=== PATIENT | female | born 1935 | race Caucasian/White ===

== ENCOUNTER 2017-10-31 16:32 | Inpatient (IN) | payer MEDICAID ==
[~2017-10-31] VITALS: Ht 160 cm; Wt 83.4 kg
[2017-10-31 17:29] LABS: BASOPHILS % (AUTO) 0.6 % (0.0-2.0); EOSINOPHILS % (AUTO) 0.3 % (1.0-6.0); HEMATOCRIT 37.5 % (36-46); HEMOGLOBIN 12.3 g/dL (12.0-16.0); LYMPHOCYTES % (AUTO) 12.3 % (22.0-44.0); MEAN CORPUSCULAR HEMOGLOBIN 30.1 pg (26.0-34.0); MEAN CORPUSCULAR HGB CONC 32.8 G/dL (31.0-37.0); MEAN CORPUSCULAR VOLUME 92 fL (80-100); MONOCYTES # (AUTO) 1.3 K/uL (0.1-1.0); MONOCYTES % (AUTO) 15.4 % (2.0-9.0); NEUTROPHILS # (AUTO) 5.9 K/uL (1.8-7.7); NEUTROPHILS % (AUTO) 71.4 % (40.0-70.0); PLATELET COUNT (AUTO) 281 K/uL (150-450); RED BLOOD CELL COUNT(AUTO) 4.08 MIL/uL (4.00-5.20); RED CELL DISTRIBUTION WIDTH 15.5 % (11.5-14.5)
[2017-10-31] MEDS ORDERED: BACITRACIN 0.9 GM PACKET OINTMENT TP ONE (17:30)
[2017-10-31 17:35] LABS: ANION GAP 8 mmol/L (8-16); CALCIUM, TOTAL 10.3 mg/dL (8.8-10.5); CARBON DIOXIDE 27 mmol/L (22-29); CHLORIDE 105 mmol/L (98-107); CREATININE 0.82 mg/dL (0.60-1.30); GLOMERULAR FILTR. RATE CALC > 60 mL/min (>60); GLUCOSE,RANDOM 153 mg/dL (70-110); POTASSIUM 4.4 mmol/L (3.5-5.1); SODIUM SERUM 140 mmol/L (136-145); UREA NITROGEN, BLOOD 19 mg/dL (7-18)
[2017-10-31 17:41] LABS: ALANINE AMINOTRANSFERASE 60 U/L (12-78); ALKALINE PHOSPHATASE 138 U/L (46-116); ASPARTATE AMINOTRANSFERASE 32 U/L (15-37); BILIRUBIN,TOTAL 0.7 mg/dL (0.1-1.0); TOTAL PROTEIN, SERUM 6.4 g/dL (6.4-8.2)
[2017-10-31 17:57] LABS: LIPASE 91 U/L (73-393)
[2017-10-31 18:15] LABS: B-TYPE NATRIURETIC PEPTIDE 2110 pg/mL (0-100)
[2017-10-31 18:23] LABS: APPEARANCE,URINE CLEAR (CLEAR); BILIRUBIN,URINE NEGATIVE (NEGATIVE); GLUCOSE, URINE (UA) NEGATIVE (NEGATIVE); KETONES,URINE NEGATIVE (NEGATIVE); LEUKOCYTE ESTERASE ,URINE TRACE (NEGATIVE); NITRATE,URINE NEGATIVE (NEGATIVE); OCCULT BLOOD,URINE NEGATIVE (NEGATIVE); PH,URINE 6.5 (5.0-8.0); PROTEIN,URINE TRACE (NEGATIVE)
[2017-10-31] MEDS ORDERED: ACETAMINOPHEN 325 MG TABLET PO PRN ×2 (18:30→18:45)
[2017-10-31] MEDS ORDERED: 0.9% SODIUM CHLORIDE 10 ML SYRINGE IVP PRN (18:30)
[2017-10-31] MEDS ORDERED: CEFTAROLINE 600 MG/D5W 250 ML IV ONE (18:30)
[2017-10-31] MEDS ORDERED: ONDANSETRON HCL 4 MG/2 ML VIAL IVP PRN ×2 (18:30→18:45)
[2017-10-31 18:32] LABS: BACTERIA,URINE Few /HPF (None Seen); RBC,URINE 0-2 /HPF (0-2); SQUAMOUS EPITHELIAL CELL,UR Few /LPF (None Seen)
[2017-10-31 18:35] LABS: AMPHET/METH SCREEN,URINE NEGATIVE (NEGATIVE); BARBITURATE SCREEN, URINE NEGATIVE (NEGATIVE); BENZODIAZEPINES SCREEN,URINE NEGATIVE (NEGATIVE); CANNABINOID SCREEN,URINE NEGATIVE (NEGATIVE); COCAINE SCREEN,URINE NEGATIVE (NEGATIVE); METHADONE SCREEN, URINE NEGATIVE (NEGATIVE); OPIATE SCREEN,URINE NEGATIVE (NEGATIVE)
[2017-10-31 18:36] LABS: PHENCYCLIDINE SCREEN,URINE NEGATIVE (NEGATIVE)
[2017-10-31] MEDS ORDERED: MORPHINE SULFATE 2 MG/ML SYRINGE IVP PRN (18:45)
[2017-10-31] MEDS ORDERED: ASPIRIN 81 MG EC TABLET PO ONE (19:00)
[2017-10-31 19:25] LABS: FREE T4 (FREE THYROXINE) 1.14 ng/dL (0.76-1.46); THYROID STIMULATING HORMONE 3.01 uIU/mL (0.36-3.74)
[2017-10-31 20:40] VITALS: BP 140/79
[2017-10-31] MEDS: CARVEDILOL 3.125 MG TABLET PO SCH (21:51)
[2017-10-31] MEDS: DOCUSATE SODIUM 100 MG CAPSULE PO SCH (21:51)
[2017-10-31] MEDS: FUROSEMIDE 40 MG/4 ML VIAL IVP SCH (21:51)
[2017-10-31] MEDS ORDERED: INFLUENZA VIRUS VACCINE QVS 2017-18 (3YR+)/PF 60 MCG/0.5 ML SYRINGE IM ONE (22:45)
[2017-10-31 23:12] VITALS: BP 146/74
[2017-11-01 04:51] VITALS: BP 124/71
[2017-11-01] MEDS ORDERED: SODIUM CHLORIDE 0.9% 500 ML IV ONE (05:07)
[2017-11-01] MEDS ORDERED: VANCOMYCIN HCL 1 GM/D5% WATER 200 ML IV SCH (05:45)
[2017-11-01] MEDS ORDERED: CEFTAROLINE 600 MG/D5W 250 ML IV SCH (06:00)
[2017-11-01] MEDS ORDERED: VANCOMYCIN HCL 1 GM/D5% WATER 200 ML IV ONE ×2 (06:30→11:00)
[2017-11-01 06:55] LABS: INR 1.1 (0.9-1.1); PROTHROMBIN TIME 11.2 SEC (9.4-11.6)
[2017-11-01 07:07] LABS: HEMOGLOBIN A1C 6.4 % (4.5-6.2)
[2017-11-01 07:14] LABS: ANION GAP 6 mmol/L (8-16); C-REACTIVE PROTEIN QUANT 1.72 mg/dL (0.00-0.30); CALCIUM, TOTAL 9.5 mg/dL (8.8-10.5); CARBON DIOXIDE 29 mmol/L (22-29); CHLORIDE 103 mmol/L (98-107); CHOL/HDL RATIO 2.5 (3.9-5.7); CHOLESTEROL 141 mg/dL (131-200); CREATINE KINASE, TOTAL 37 U/L (26-192); CREATININE 0.88 mg/dL (0.60-1.30); GLOMERULAR FILTR. RATE CALC > 60 mL/min (>60); GLUCOSE,RANDOM 143 mg/dL (70-110); HDL CHOLESTEROL 56 mg/dL (40-60); LDL CHOL (CALC.) 71 mg/dL (0-130); PHOSPHORUS 3.4 mg/dL (2.5-4.9); POTASSIUM 3.6 mmol/L (3.5-5.1); SODIUM SERUM 138 mmol/L (136-145); TRIGLYCERIDES 71 mg/dL (15-150); UREA NITROGEN, BLOOD 16 mg/dL (7-18)
[2017-11-01 07:39] VITALS: BP 119/61
[2017-11-01] MEDS ORDERED: GADOBUTROL 1 MMOL/ML 10 ML VIAL IVP ONE (08:36)
[2017-11-01] MEDS: FUROSEMIDE 40 MG/4 ML VIAL IVP SCH ×2 (08:56→20:09)
[2017-11-01] MEDS: DOCUSATE SODIUM 100 MG CAPSULE PO SCH ×2 (08:56→20:09)
[2017-11-01] MEDS: CARVEDILOL 3.125 MG TABLET PO SCH ×2 (08:57→20:09)
[2017-11-01] MEDS: ENOXAPARIN SODIUM 40 MG/0.4 ML PF SYRINGE SQ SCH (08:57)
[2017-11-01] MEDS: PANTOPRAZOLE SODIUM 40 MG DR TABLET PO SCH (08:57)
[2017-11-01] MEDS: LISINOPRIL 5 MG TABLET PO SCH (08:57)
[2017-11-01 12:22] VITALS: BP 139/66
[2017-11-01] MEDS: POTASSIUM CHLORIDE 10 MEQ ER TABLET PO SCH (14:20)
[2017-11-01] MEDS: PIPERACILLIN/TAZO 3.375 GM/D5W 50 ML IV SCH ×2 (14:20→20:09)
[2017-11-01 16:25] VITALS: BP 121/59
[2017-11-01 20:02] VITALS: BP 143/71
[2017-11-01] MEDS: VANCOMYCIN HCL 1 GM/D5% WATER 200 ML IV SCH (20:09)
[2017-11-02] VITALS (21 sets, daily range): BP systolic 100–158; BP diastolic 46–79
[2017-11-02] MEDS: PIPERACILLIN/TAZO 3.375 GM/D5W 50 ML IV SCH ×3 (06:11→20:44)
[2017-11-02 07:05] LABS: CALCIUM, TOTAL 9.3 mg/dL (8.8-10.5); CREATININE 1.14 mg/dL (0.60-1.30); POTASSIUM 3.4 mmol/L (3.5-5.1)
[2017-11-02] MEDS: VANCOMYCIN HCL 1 GM/D5% WATER 200 ML IV SCH ×2 (08:57→20:16)
[2017-11-02] MEDS: FUROSEMIDE 40 MG/4 ML VIAL IVP SCH ×2 (08:57→20:43)
[2017-11-02] MEDS: PANTOPRAZOLE SODIUM 40 MG DR TABLET PO SCH (08:58)
[2017-11-02] MEDS: DOCUSATE SODIUM 100 MG CAPSULE PO SCH ×2 (08:58→20:43)
[2017-11-02] MEDS: LISINOPRIL 5 MG TABLET PO SCH (08:59)
[2017-11-02] MEDS: CARVEDILOL 3.125 MG TABLET PO SCH (08:59)
[2017-11-02] MEDS: POTASSIUM CHLORIDE 10 MEQ ER TABLET PO SCH (09:00)
[2017-11-02] MEDS ORDERED: DULoxetine HCL 20 MG CAPSULE PO SCH (09:00)
[2017-11-02] MEDS: ENOXAPARIN SODIUM 40 MG/0.4 ML PF SYRINGE SQ SCH (09:00)
[2017-11-02] MEDS: HYDROCODONE/ACETAMINOPHEN 5-325 MG TABLET PO PRN (09:11)
[2017-11-02] MEDS ORDERED: POTASSIUM CHL 10 MEQ/WATER 50 ML IV PRN (12:00)
[2017-11-02] MEDS ORDERED: POTASSIUM CHLORIDE 20 MEQ ER TABLET PO PRN (12:00)
[2017-11-02 15:22] LABS: EOSINOPHILS % (AUTO) 0.6 % (1.0-6.0); LYMPHOCYTES # (AUTO) 0.6 K/uL (1.0-4.8); NEUTROPHILS # (AUTO) 6.4 K/uL (1.8-7.7); RED CELL DISTRIBUTION WIDTH 15.6 % (11.5-14.5)
[2017-11-02 15:54] LABS: BASOPHILS % (AUTO) 0.4 % (0.0-2.0); HEMATOCRIT 34.2 % (36-46); LYMPHOCYTES % (AUTO) 7.2 % (22.0-44.0); MEAN CORPUSCULAR HEMOGLOBIN 29.8 pg (26.0-34.0); MEAN CORPUSCULAR HGB CONC 32.2 G/dL (31.0-37.0); MEAN CORPUSCULAR VOLUME 92 fL (80-100); MONOCYTES # (AUTO) 1.1 K/uL (0.1-1.0); MONOCYTES % (AUTO) 13.1 % (2.0-9.0); NEUTROPHILS % (AUTO) 78.7 % (40.0-70.0); PLATELET COUNT (AUTO) 238 K/uL (150-450)
[2017-11-02] MEDS: DOPamine HCL 400 MG/D5%-WATER 250 ML IV SCH (20:17)
[2017-11-03] VITALS (17 sets, daily range): BP systolic 131–150; BP diastolic 52–74
[2017-11-03] MEDS: PIPERACILLIN/TAZO 3.375 GM/D5W 50 ML IV SCH ×3 (05:17→21:56)
[2017-11-03 07:23] LABS: BASOPHILS % (AUTO) 0.9 % (0.0-2.0); EOSINOPHILS % (AUTO) 0.2 % (1.0-6.0); HEMATOCRIT 37.7 % (36-46); HEMOGLOBIN 12.5 g/dL (12.0-16.0); LYMPHOCYTES % (AUTO) 10.1 % (22.0-44.0); MEAN CORPUSCULAR HEMOGLOBIN 30.3 pg (26.0-34.0); MEAN CORPUSCULAR VOLUME 92 fL (80-100); MONOCYTES # (AUTO) 1.6 K/uL (0.1-1.0); MONOCYTES % (AUTO) 16.1 % (2.0-9.0); NEUTROPHILS # (AUTO) 7.2 K/uL (1.8-7.7); NEUTROPHILS % (AUTO) 72.7 % (40.0-70.0); PLATELET COUNT (AUTO) 262 K/uL (150-450); RED BLOOD CELL COUNT(AUTO) 4.11 MIL/uL (4.00-5.20); RED CELL DISTRIBUTION WIDTH 15.5 % (11.5-14.5)
[2017-11-03 07:49] LABS: ALBUMIN 2.7 g/dL (3.4-5.0); BILIRUBIN,TOTAL 0.6 mg/dL (0.1-1.0); CALCIUM, TOTAL 9.9 mg/dL (8.8-10.5); CREATININE 1.21 mg/dL (0.60-1.30); POTASSIUM 4.2 mmol/L (3.5-5.1); TOTAL PROTEIN, SERUM 6.3 g/dL (6.4-8.2); VANCOMYCIN,RANDOM 34.7 mcg/mL (25.0-50.0)
[2017-11-03] MEDS ORDERED: HEPARIN SODIUM,PORCINE 5,000 UNITS/ML VIAL IVP ONE (08:45)
[2017-11-03] MEDS ORDERED: HEPARIN SODIUM,PORCINE 5,000 UNITS/ML VIAL IVP PRN ×2 (08:45)
[2017-11-03 09:10] LABS: BASOPHILS % (AUTO) 0.6 % (0.0-2.0); EOSINOPHILS % (AUTO) 0.3 % (1.0-6.0); HEMATOCRIT 37.8 % (36-46); HEMOGLOBIN 12.5 g/dL (12.0-16.0); LYMPHOCYTES % (AUTO) 9.7 % (22.0-44.0); MEAN CORPUSCULAR HEMOGLOBIN 30.4 pg (26.0-34.0); MEAN CORPUSCULAR VOLUME 92 fL (80-100); MONOCYTES # (AUTO) 1.6 K/uL (0.1-1.0); MONOCYTES % (AUTO) 15.8 % (2.0-9.0); NEUTROPHILS # (AUTO) 7.4 K/uL (1.8-7.7); NEUTROPHILS % (AUTO) 73.6 % (40.0-70.0); PLATELET COUNT (AUTO) 266 K/uL (150-450); RED BLOOD CELL COUNT(AUTO) 4.09 MIL/uL (4.00-5.20); RED CELL DISTRIBUTION WIDTH 15.6 % (11.5-14.5)
[2017-11-03 09:19] LABS: INR 1.1 (0.9-1.1); PROTHROMBIN TIME 11.1 SEC (9.4-11.6)
[2017-11-03] MEDS: HEPARIN SODIUM 25000 UNITS/D5W 250 ML IV PRN (09:36)
[2017-11-03] MEDS: POTASSIUM CHLORIDE 10 MEQ ER TABLET PO SCH (09:38)
[2017-11-03] MEDS: ASPIRIN 81 MG EC TABLET PO SCH (09:38)
[2017-11-03] MEDS: PANTOPRAZOLE SODIUM 40 MG DR TABLET PO SCH (09:38)
[2017-11-03] MEDS: PRAVASTATIN SODIUM 20 MG TABLET PO SCH (09:38)
[2017-11-03] MEDS: DOCUSATE SODIUM 100 MG CAPSULE PO SCH ×2 (09:38→21:56)
[2017-11-03] MEDS: FUROSEMIDE 40 MG/4 ML VIAL IVP SCH ×2 (09:39→21:56)
[2017-11-03 18:28] LABS: GLUCOMETER DEV NAME(LOC) 5S 2N; GLUCOSE,POINT OF CARE 124 MG/DL (70-110)
[2017-11-03] MEDS: DOPamine HCL 400 MG/D5%-WATER 250 ML IV SCH (18:57)
[2017-11-03] MEDS ORDERED: SODIUM CHLORIDE 0.9% 250 ML IV ONE (21:51)
[2017-11-04] VITALS (7 sets, daily range): BP systolic 115–142; BP diastolic 64–99
[2017-11-04] MEDS ORDERED: DOPamine HCL 400 MG/D5%-WATER 250 ML IV PRN (03:05)
[2017-11-04] MEDS: PIPERACILLIN/TAZO 3.375 GM/D5W 50 ML IV SCH ×3 (05:36→20:51)
[2017-11-04 06:33] LABS: BASOPHILS % (AUTO) 0.8 % (0.0-2.0); EOSINOPHILS % (AUTO) 0.4 % (1.0-6.0); HEMOGLOBIN 11.1 g/dL (12.0-16.0); LYMPHOCYTES # (AUTO) 0.9 K/uL (1.0-4.8); LYMPHOCYTES % (AUTO) 14.3 % (22.0-44.0); MEAN CORPUSCULAR HEMOGLOBIN 30.3 pg (26.0-34.0); MEAN CORPUSCULAR HGB CONC 32.7 G/dL (31.0-37.0); MEAN CORPUSCULAR VOLUME 93 fL (80-100); MONOCYTES % (AUTO) 15.1 % (2.0-9.0); NEUTROPHILS # (AUTO) 4.4 K/uL (1.8-7.7); NEUTROPHILS % (AUTO) 69.4 % (40.0-70.0); PLATELET COUNT (AUTO) 234 K/uL (150-450); RED BLOOD CELL COUNT(AUTO) 3.67 MIL/uL (4.00-5.20); RED CELL DISTRIBUTION WIDTH 15.8 % (11.5-14.5)
[2017-11-04 06:52] LABS: ALBUMIN 2.4 g/dL (3.4-5.0); BILIRUBIN,TOTAL 0.4 mg/dL (0.1-1.0); CALCIUM, TOTAL 9.5 mg/dL (8.8-10.5); CREATININE 1.16 mg/dL (0.60-1.30); POTASSIUM 3.8 mmol/L (3.5-5.1); TOTAL PROTEIN, SERUM 5.9 g/dL (6.4-8.2)
[2017-11-04] MEDS: PRAVASTATIN SODIUM 20 MG TABLET PO SCH (08:52)
[2017-11-04] MEDS: ASPIRIN 81 MG EC TABLET PO SCH (08:52)
[2017-11-04] MEDS: VANCOMYCIN HCL 1.25 GM in DEXTROSE 5%-WATER 250 ML IV SCH (08:52)
[2017-11-04] MEDS: DOCUSATE SODIUM 100 MG CAPSULE PO SCH ×2 (08:53→20:44)
[2017-11-04] MEDS: PANTOPRAZOLE SODIUM 40 MG DR TABLET PO SCH (08:53)
[2017-11-04] MEDS: FUROSEMIDE 40 MG/4 ML VIAL IVP SCH ×2 (08:53→20:44)
[2017-11-04] MEDS: POTASSIUM CHLORIDE 10 MEQ ER TABLET PO SCH (08:53)
[2017-11-04] MEDS: HEPARIN SODIUM 25000 UNITS/D5W 250 ML IV PRN (09:06)
[2017-11-04] MEDS: APIXABAN 5 MG TABLET PO SCH ×2 (16:08→20:44)
[2017-11-04] MEDS ORDERED: SODIUM CHLORIDE 0.9% 50 ML ONE (20:41)
[2017-11-05 00:01] VITALS: BP 104/78
[2017-11-05 04:44] VITALS: BP 144/64
[2017-11-05] MEDS: PIPERACILLIN/TAZO 3.375 GM/D5W 50 ML IV SCH ×3 (04:47→21:14)
[2017-11-05 06:38] LABS: BASOPHILS % (AUTO) 0.6 % (0.0-2.0); EOSINOPHILS % (AUTO) 0.7 % (1.0-6.0); HEMATOCRIT 34.4 % (36-46); HEMOGLOBIN 11.4 g/dL (12.0-16.0); LYMPHOCYTES % (AUTO) 15.3 % (22.0-44.0); MEAN CORPUSCULAR HEMOGLOBIN 30.5 pg (26.0-34.0); MEAN CORPUSCULAR HGB CONC 33.1 G/dL (31.0-37.0); MEAN CORPUSCULAR VOLUME 92 fL (80-100); MONOCYTES % (AUTO) 16.6 % (2.0-9.0); NEUTROPHILS # (AUTO) 4.2 K/uL (1.8-7.7); NEUTROPHILS % (AUTO) 66.8 % (40.0-70.0); PLATELET COUNT (AUTO) 228 K/uL (150-450); RED BLOOD CELL COUNT(AUTO) 3.73 MIL/uL (4.00-5.20); RED CELL DISTRIBUTION WIDTH 15.9 % (11.5-14.5)
[2017-11-05 07:17] VITALS: BP 145/61
[2017-11-05 07:19] LABS: ALBUMIN 2.5 g/dL (3.4-5.0); BILIRUBIN,TOTAL 0.5 mg/dL (0.1-1.0); CALCIUM, TOTAL 9.7 mg/dL (8.8-10.5); CREATININE 1.09 mg/dL (0.60-1.30); POTASSIUM 3.4 mmol/L (3.5-5.1)
[2017-11-05] MEDS: APIXABAN 5 MG TABLET PO SCH ×2 (08:16→21:14)
[2017-11-05] MEDS: PANTOPRAZOLE SODIUM 40 MG DR TABLET PO SCH (08:16)
[2017-11-05] MEDS: ASPIRIN 81 MG EC TABLET PO SCH (08:16)
[2017-11-05] MEDS: DOCUSATE SODIUM 100 MG CAPSULE PO SCH ×2 (08:16→21:14)
[2017-11-05] MEDS: PRAVASTATIN SODIUM 20 MG TABLET PO SCH (08:16)
[2017-11-05] MEDS: VANCOMYCIN HCL 1.25 GM in DEXTROSE 5%-WATER 250 ML IV SCH (08:16)
[2017-11-05] MEDS: POTASSIUM CHLORIDE 10 MEQ ER TABLET PO SCH (08:16)
[2017-11-05] MEDS: FUROSEMIDE 40 MG/4 ML VIAL IVP SCH ×2 (08:16→21:21)
[2017-11-05 11:06] VITALS: BP 146/57
[2017-11-05] MEDS ORDERED: POTASSIUM CHLORIDE 20 MEQ ER TABLET PO ONE (12:15)
[2017-11-05 15:04] VITALS: BP 144/75
[2017-11-05 19:49] VITALS: BP 151/78
[2017-11-06] VITALS (7 sets, daily range): BP systolic 134–173; BP diastolic 62–97
[2017-11-06] MEDS: PIPERACILLIN/TAZO 3.375 GM/D5W 50 ML IV SCH ×3 (04:40→21:12)
[2017-11-06] MEDS ORDERED: SODIUM CHLORIDE 0.9% 100 ML ONE (04:51)
[2017-11-06] MEDS ORDERED: 0.9% SODIUM CHLORIDE 5 ML NEB SOLUTION NEB ONE (04:56)
[2017-11-06] MEDS: HYDROCODONE/ACETAMINOPHEN 5-325 MG TABLET PO PRN (04:56)
[2017-11-06] MEDS: IPRATROPIUM BROMIDE 0.5 MG/2.5 ML NEB SOLUTION NEB PRN (05:07)
[2017-11-06] MEDS: ALBUTEROL SULFATE 2.5 MG/0.5 ML NEB SOLUTION NEB PRN (05:07)
[2017-11-06 06:56] LABS: BASOPHILS % (AUTO) 0.6 % (0.0-2.0); EOSINOPHILS % (AUTO) 0.9 % (1.0-6.0); HEMATOCRIT 33.7 % (36-46); HEMOGLOBIN 11.2 g/dL (12.0-16.0); LYMPHOCYTES # (AUTO) 0.9 K/uL (1.0-4.8); LYMPHOCYTES % (AUTO) 13.6 % (22.0-44.0); MEAN CORPUSCULAR HEMOGLOBIN 30.4 pg (26.0-34.0); MEAN CORPUSCULAR HGB CONC 33.3 G/dL (31.0-37.0); MEAN CORPUSCULAR VOLUME 91 fL (80-100); MONOCYTES % (AUTO) 15.5 % (2.0-9.0); NEUTROPHILS # (AUTO) 4.5 K/uL (1.8-7.7); NEUTROPHILS % (AUTO) 69.4 % (40.0-70.0); PLATELET COUNT (AUTO) 208 K/uL (150-450); RED CELL DISTRIBUTION WIDTH 15.7 % (11.5-14.5)
[2017-11-06 07:49] LABS: ALBUMIN 2.4 g/dL (3.4-5.0); BILIRUBIN,TOTAL 0.5 mg/dL (0.1-1.0); CALCIUM, TOTAL 9.4 mg/dL (8.8-10.5); CREATININE 0.95 mg/dL (0.60-1.30); MAGNESIUM 1.8 mg/dL (1.80-2.40); POTASSIUM 3.3 mmol/L (3.5-5.1); TOTAL PROTEIN, SERUM 5.8 g/dL (6.4-8.2); VANCOMYCIN,RANDOM 19.7 mcg/mL (25.0-50.0)
[2017-11-06] MEDS: VANCOMYCIN HCL 1.25 GM in DEXTROSE 5%-WATER 250 ML IV SCH (08:39)
[2017-11-06] MEDS ORDERED: POTASSIUM CHLORIDE 20 MEQ ER TABLET PO ONE (08:45)
[2017-11-06] MEDS: FUROSEMIDE 40 MG/4 ML VIAL IVP SCH ×2 (08:57→21:12)
[2017-11-06] MEDS: APIXABAN 5 MG TABLET PO SCH ×2 (08:58→21:12)
[2017-11-06] MEDS: MULTIVITAMINS WITH MINERALS, THERAPEUTIC TABLET PO SCH (08:58)
[2017-11-06] MEDS: DOCUSATE SODIUM 100 MG CAPSULE PO SCH ×2 (08:58→21:12)
[2017-11-06] MEDS: PANTOPRAZOLE SODIUM 40 MG DR TABLET PO SCH (08:58)
[2017-11-06] MEDS: PRAVASTATIN SODIUM 20 MG TABLET PO SCH (08:58)
[2017-11-06] MEDS: ASPIRIN 81 MG EC TABLET PO SCH (08:58)
[2017-11-06] MEDS: POTASSIUM CHLORIDE 10 MEQ ER TABLET PO SCH (09:00)
[2017-11-06] MEDS ORDERED: METOPROLOL TARTRATE 5 MG/5 ML VIAL IVP ONE ×2 (23:00→23:30)
[2017-11-07] VITALS: BP 164/90
[2017-11-07 03:20] VITALS: BP 137/81
[2017-11-07] MEDS: PIPERACILLIN/TAZO 3.375 GM/D5W 50 ML IV SCH ×3 (04:48→20:20)
[2017-11-07 06:31] LABS: BASOPHILS % (AUTO) 0.1 % (0.0-2.0); EOSINOPHILS % (AUTO) 0.1 % (1.0-6.0); HEMATOCRIT 37.7 % (36-46); HEMOGLOBIN 12.5 g/dL (12.0-16.0); LYMPHOCYTES # (AUTO) 0.6 K/uL (1.0-4.8); LYMPHOCYTES % (AUTO) 6.6 % (22.0-44.0); MEAN CORPUSCULAR HEMOGLOBIN 30.3 pg (26.0-34.0); MEAN CORPUSCULAR HGB CONC 33.1 G/dL (31.0-37.0); MEAN CORPUSCULAR VOLUME 91 fL (80-100); MONOCYTES # (AUTO) 1.1 K/uL (0.1-1.0); MONOCYTES % (AUTO) 12.1 % (2.0-9.0); NEUTROPHILS # (AUTO) 7.4 K/uL (1.8-7.7); NEUTROPHILS % (AUTO) 81.1 % (40.0-70.0); PLATELET COUNT (AUTO) 238 K/uL (150-450); RED BLOOD CELL COUNT(AUTO) 4.13 MIL/uL (4.00-5.20); RED CELL DISTRIBUTION WIDTH 15.8 % (11.5-14.5)
[2017-11-07 07:22] VITALS: BP 148/90
[2017-11-07 07:29] LABS: ALBUMIN 2.7 g/dL (3.4-5.0); BILIRUBIN,TOTAL 0.5 mg/dL (0.1-1.0); CREATININE 0.9 mg/dL (0.60-1.30); MAGNESIUM 1.9 mg/dL (1.80-2.40); POTASSIUM 3.5 mmol/L (3.5-5.1); TOTAL PROTEIN, SERUM 6.2 g/dL (6.4-8.2)
[2017-11-07] MEDS: PANTOPRAZOLE SODIUM 40 MG DR TABLET PO SCH (07:56)
[2017-11-07] MEDS: MULTIVITAMINS WITH MINERALS, THERAPEUTIC TABLET PO SCH (07:56)
[2017-11-07] MEDS: PRAVASTATIN SODIUM 20 MG TABLET PO SCH (07:56)
[2017-11-07] MEDS: FUROSEMIDE 40 MG/4 ML VIAL IVP SCH ×2 (07:56→20:21)
[2017-11-07] MEDS: ASPIRIN 81 MG EC TABLET PO SCH (07:57)
[2017-11-07] MEDS: DOCUSATE SODIUM 100 MG CAPSULE PO SCH ×2 (07:57→20:21)
[2017-11-07] MEDS: POTASSIUM CHLORIDE 10 MEQ ER TABLET PO SCH (07:57)
[2017-11-07] MEDS: APIXABAN 5 MG TABLET PO SCH ×2 (07:57→20:21)
[2017-11-07] MEDS: VANCOMYCIN HCL 1.25 GM in DEXTROSE 5%-WATER 250 ML IV SCH (07:58)
[2017-11-07] MEDS: IPRATROPIUM BROMIDE 0.5 MG/2.5 ML NEB SOLUTION NEB PRN (08:08)
[2017-11-07] MEDS: ALBUTEROL SULFATE 2.5 MG/0.5 ML NEB SOLUTION NEB PRN (08:08)
[2017-11-07] MEDS ORDERED: SODIUM CHLORIDE 0.9% 250 ML IV ONE (10:02)
[2017-11-07] MEDS: AMIODARONE HCL 200 MG TABLET PO SCH ×3 (10:07→22:46)
[2017-11-07 11:26] VITALS: BP 155/82
[2017-11-07 15:48] VITALS: BP 130/80
[2017-11-07 19:43] VITALS: BP 152/92
[2017-11-07 22:19] LABS: MAGNESIUM 2.1 mg/dL (1.80-2.40); POTASSIUM 3.6 mmol/L (3.5-5.1)
[2017-11-08 04:10] VITALS: BP 159/94
[2017-11-08] MEDS: PIPERACILLIN/TAZO 3.375 GM/D5W 50 ML IV SCH ×3 (04:29→21:14)
[2017-11-08 07:36] LABS: BASOPHILS % (AUTO) 0.5 % (0.0-2.0); EOSINOPHILS % (AUTO) 0 % (1.0-6.0); HEMATOCRIT 39.1 % (36-46); HEMOGLOBIN 13.1 g/dL (12.0-16.0); LYMPHOCYTES # (AUTO) 0.8 K/uL (1.0-4.8); LYMPHOCYTES % (AUTO) 8.8 % (22.0-44.0); MEAN CORPUSCULAR HEMOGLOBIN 30.3 pg (26.0-34.0); MEAN CORPUSCULAR HGB CONC 33.5 G/dL (31.0-37.0); MEAN CORPUSCULAR VOLUME 91 fL (80-100); MONOCYTES # (AUTO) 0.8 K/uL (0.1-1.0); MONOCYTES % (AUTO) 9.4 % (2.0-9.0); NEUTROPHILS # (AUTO) 7.3 K/uL (1.8-7.7); NEUTROPHILS % (AUTO) 81.3 % (40.0-70.0); PLATELET COUNT (AUTO) 264 K/uL (150-450); RED BLOOD CELL COUNT(AUTO) 4.32 MIL/uL (4.00-5.20); RED CELL DISTRIBUTION WIDTH 16.3 % (11.5-14.5)
[2017-11-08] MEDS: ASPIRIN 81 MG EC TABLET PO SCH (07:40)
[2017-11-08] MEDS: POTASSIUM CHLORIDE 10 MEQ ER TABLET PO SCH (07:40)
[2017-11-08] MEDS: DOCUSATE SODIUM 100 MG CAPSULE PO SCH ×2 (07:40→21:13)
[2017-11-08] MEDS: MULTIVITAMINS WITH MINERALS, THERAPEUTIC TABLET PO SCH (07:40)
[2017-11-08] MEDS: FUROSEMIDE 40 MG/4 ML VIAL IVP SCH ×2 (07:40→21:14)
[2017-11-08] MEDS: PRAVASTATIN SODIUM 20 MG TABLET PO SCH (07:40)
[2017-11-08] MEDS: AMIODARONE HCL 200 MG TABLET PO SCH ×3 (07:40→21:13)
[2017-11-08] MEDS: APIXABAN 5 MG TABLET PO SCH ×2 (07:41→21:13)
[2017-11-08] MEDS: PANTOPRAZOLE SODIUM 40 MG DR TABLET PO SCH (07:41)
[2017-11-08 07:55] LABS: ALBUMIN 2.8 g/dL (3.4-5.0); BILIRUBIN,TOTAL 0.6 mg/dL (0.1-1.0); CALCIUM, TOTAL 10.3 mg/dL (8.8-10.5); CREATININE 1.04 mg/dL (0.60-1.30); MAGNESIUM 2.1 mg/dL (1.80-2.40); POTASSIUM 3.5 mmol/L (3.5-5.1); TOTAL PROTEIN, SERUM 6.7 g/dL (6.4-8.2)
[2017-11-08 08:29] VITALS: BP 150/94
[2017-11-08] MEDS: VANCOMYCIN HCL 1.25 GM in DEXTROSE 5%-WATER 250 ML IV SCH (10:00)
[2017-11-08 11:23] VITALS: BP 139/77
[2017-11-08 15:42] VITALS: BP 155/89
[2017-11-08 19:18] VITALS: BP 156/95
[2017-11-08 23:51] VITALS: BP 152/80
[2017-11-09] MEDS ORDERED: SODIUM CHLORIDE 0.9% 250 ML IV ONE (03:29)
[2017-11-09 04:34] VITALS: BP 151/87
[2017-11-09] MEDS: PIPERACILLIN/TAZO 3.375 GM/D5W 50 ML IV SCH ×3 (04:40→21:07)
[2017-11-09 06:46] LABS: CALCIUM, TOTAL 10.1 mg/dL (8.8-10.5); CREATININE 1.24 mg/dL (0.60-1.30); POTASSIUM 3.5 mmol/L (3.5-5.1)
[2017-11-09 07:36] VITALS: BP 153/94
[2017-11-09] MEDS: VANCOMYCIN HCL 1.25 GM in DEXTROSE 5%-WATER 250 ML IV SCH (08:15)
[2017-11-09] MEDS: FUROSEMIDE 40 MG/4 ML VIAL IVP SCH ×2 (08:15→21:07)
[2017-11-09] MEDS: POTASSIUM CHLORIDE 10 MEQ ER TABLET PO SCH (08:16)
[2017-11-09] MEDS: AMIODARONE HCL 200 MG TABLET PO SCH ×3 (08:16→21:07)
[2017-11-09] MEDS: ASPIRIN 81 MG EC TABLET PO SCH (08:16)
[2017-11-09] MEDS: PANTOPRAZOLE SODIUM 40 MG DR TABLET PO SCH (08:16)
[2017-11-09] MEDS: APIXABAN 5 MG TABLET PO SCH ×2 (08:16→21:07)
[2017-11-09] MEDS: MULTIVITAMINS WITH MINERALS, THERAPEUTIC TABLET PO SCH (08:16)
[2017-11-09] MEDS: DOCUSATE SODIUM 100 MG CAPSULE PO SCH ×2 (08:16→21:07)
[2017-11-09] MEDS: PRAVASTATIN SODIUM 20 MG TABLET PO SCH (08:16)
[2017-11-09] MEDS: LISINOPRIL 5 MG TABLET PO SCH (10:14)
[2017-11-09] MEDS ORDERED: POTASSIUM CHLORIDE 10 MEQ ER TABLET PO ONE (10:30)
[2017-11-09 11:18] VITALS: BP 142/85
[2017-11-09 15:52] VITALS: BP 131/69
[2017-11-09 20:15] VITALS: BP 149/73
[2017-11-10] VITALS: BP 158/75
[2017-11-10 04:52] VITALS: BP 157/90
[2017-11-10] MEDS: PIPERACILLIN/TAZO 3.375 GM/D5W 50 ML IV SCH ×3 (05:11→21:41)
[2017-11-10 05:53] LABS: BASOPHILS % (AUTO) 0.2 % (0.0-2.0); EOSINOPHILS % (AUTO) 0 % (1.0-6.0); HEMATOCRIT 39.3 % (36-46); HEMOGLOBIN 13.1 g/dL (12.0-16.0); LYMPHOCYTES # (AUTO) 0.6 K/uL (1.0-4.8); LYMPHOCYTES % (AUTO) 4.5 % (22.0-44.0); MEAN CORPUSCULAR HEMOGLOBIN 30.4 pg (26.0-34.0); MEAN CORPUSCULAR HGB CONC 33.3 G/dL (31.0-37.0); MEAN CORPUSCULAR VOLUME 91 fL (80-100); MONOCYTES # (AUTO) 1.4 K/uL (0.1-1.0); MONOCYTES % (AUTO) 11.3 % (2.0-9.0); NEUTROPHILS # (AUTO) 10.7 K/uL (1.8-7.7); PLATELET COUNT (AUTO) 275 K/uL (150-450); RED CELL DISTRIBUTION WIDTH 16.2 % (11.5-14.5)
[2017-11-10 06:25] LABS: BILIRUBIN,TOTAL 0.7 mg/dL (0.1-1.0); CALCIUM, TOTAL 9.9 mg/dL (8.8-10.5); CREATININE 1.01 mg/dL (0.60-1.30); MAGNESIUM 2.1 mg/dL (1.80-2.40); POTASSIUM 3.1 mmol/L (3.5-5.1); TOTAL PROTEIN, SERUM 6.6 g/dL (6.4-8.2); VANCOMYCIN,RANDOM 24.1 mcg/mL (25.0-50.0)
[2017-11-10 07:46] VITALS: BP 169/83
[2017-11-10] MEDS ORDERED: POTASSIUM CHLORIDE 20 MEQ ER TABLET PO ONE (08:15)
[2017-11-10] MEDS: APIXABAN 5 MG TABLET PO SCH (08:59)
[2017-11-10] MEDS: DOCUSATE SODIUM 100 MG CAPSULE PO SCH ×2 (08:59→21:41)
[2017-11-10] MEDS: AMIODARONE HCL 200 MG TABLET PO SCH ×3 (08:59→21:00)
[2017-11-10] MEDS: MULTIVITAMINS WITH MINERALS, THERAPEUTIC TABLET PO SCH (08:59)
[2017-11-10] MEDS: POTASSIUM CHLORIDE 10 MEQ ER TABLET PO SCH (08:59)
[2017-11-10] MEDS: PANTOPRAZOLE SODIUM 40 MG DR TABLET PO SCH (08:59)
[2017-11-10] MEDS: ASPIRIN 81 MG EC TABLET PO SCH (08:59)
[2017-11-10] MEDS: PRAVASTATIN SODIUM 20 MG TABLET PO SCH (08:59)
[2017-11-10] MEDS: LISINOPRIL 5 MG TABLET PO SCH (09:00)
[2017-11-10] MEDS ORDERED: FUROSEMIDE 40 MG TABLET PO SCH (09:00)
[2017-11-10 11:07] VITALS: BP 165/93
[2017-11-10] MEDS: FUROSEMIDE 40 MG TABLET PO SCH (13:02)
[2017-11-10 15:42] VITALS: BP 125/66
[2017-11-10 20:11] VITALS: BP 159/80
[2017-11-10] MEDS: APIXABAN 2.5 MG TABLET PO SCH (21:00)
[2017-11-11] VITALS (7 sets, daily range): BP systolic 127–156; BP diastolic 66–93
[2017-11-11] MEDS: PIPERACILLIN/TAZO 3.375 GM/D5W 50 ML IV SCH ×3 (04:57→20:55)
[2017-11-11 08:20] LABS: BASOPHILS % (AUTO) 0.9 % (0.0-2.0); EOSINOPHILS % (AUTO) 0.1 % (1.0-6.0); HEMATOCRIT 37.8 % (36-46); HEMOGLOBIN 12.4 g/dL (12.0-16.0); LYMPHOCYTES # (AUTO) 0.7 K/uL (1.0-4.8); LYMPHOCYTES % (AUTO) 5.5 % (22.0-44.0); MEAN CORPUSCULAR HGB CONC 32.8 G/dL (31.0-37.0); MEAN CORPUSCULAR VOLUME 92 fL (80-100); MONOCYTES # (AUTO) 2.1 K/uL (0.1-1.0); MONOCYTES % (AUTO) 16.6 % (2.0-9.0); NEUTROPHILS # (AUTO) 9.6 K/uL (1.8-7.7); NEUTROPHILS % (AUTO) 76.9 % (40.0-70.0); PLATELET COUNT (AUTO) 226 K/uL (150-450); RED BLOOD CELL COUNT(AUTO) 4.12 MIL/uL (4.00-5.20); RED CELL DISTRIBUTION WIDTH 15.9 % (11.5-14.5)
[2017-11-11 08:50] LABS: ALANINE AMINOTRANSFERASE 57 U/L (12-78); ALBUMIN 2.5 g/dL (3.4-5.0); ALKALINE PHOSPHATASE 111 U/L (46-116); ANION GAP 5 mmol/L (8-16); ASPARTATE AMINOTRANSFERASE 36 U/L (15-37); BILIRUBIN,TOTAL 0.6 mg/dL (0.1-1.0); CALCIUM, TOTAL 9.8 mg/dL (8.8-10.5); CARBON DIOXIDE 39 mmol/L (22-29); CHLORIDE 99 mmol/L (98-107); CREATININE 0.81 mg/dL (0.60-1.30); GLOMERULAR FILTR. RATE CALC > 60 mL/min (>60); GLUCOSE,RANDOM 140 mg/dL (70-110); POTASSIUM 3.2 mmol/L (3.5-5.1); SODIUM SERUM 143 mmol/L (136-145); UREA NITROGEN, BLOOD 35 mg/dL (7-18)
[2017-11-11] MEDS: ASPIRIN 81 MG EC TABLET PO SCH (09:10)
[2017-11-11] MEDS: VANCOMYCIN HCL 1 GM/D5% WATER 200 ML IV SCH (09:10)
[2017-11-11] MEDS: APIXABAN 2.5 MG TABLET PO SCH ×2 (09:10→20:55)
[2017-11-11] MEDS: LISINOPRIL 5 MG TABLET PO SCH (09:11)
[2017-11-11] MEDS: FUROSEMIDE 40 MG TABLET PO SCH (09:11)
[2017-11-11] MEDS: PRAVASTATIN SODIUM 20 MG TABLET PO SCH (09:11)
[2017-11-11] MEDS: MULTIVITAMINS WITH MINERALS, THERAPEUTIC TABLET PO SCH (09:11)
[2017-11-11] MEDS: DOCUSATE SODIUM 100 MG CAPSULE PO SCH ×2 (09:11→20:55)
[2017-11-11] MEDS: POTASSIUM CHLORIDE 10 MEQ ER TABLET PO SCH (09:11)
[2017-11-11] MEDS: PANTOPRAZOLE SODIUM 40 MG DR TABLET PO SCH (09:11)
[2017-11-11] MEDS: AMIODARONE HCL 200 MG TABLET PO SCH ×2 (09:11→20:55)
[2017-11-11] MEDS ORDERED: SODIUM CHLORIDE 0.9% 50 ML ONE (14:11)
[2017-11-11] MEDS ORDERED: POTASSIUM CHLORIDE 20 MEQ ER TABLET PO ONE (14:45)
[2017-11-12] MEDS: PIPERACILLIN/TAZO 3.375 GM/D5W 50 ML IV SCH ×3 (05:21→20:55)
[2017-11-12 05:44] VITALS: BP 138/71
[2017-11-12] MEDS ORDERED: SODIUM CHLORIDE 0.9% 0 ML ONE (05:51)
[2017-11-12 06:16] LABS: BASOPHILS % (AUTO) 0.1 % (0.0-2.0); EOSINOPHILS % (AUTO) 0.2 % (1.0-6.0); HEMOGLOBIN 12.1 g/dL (12.0-16.0); LYMPHOCYTES # (AUTO) 0.6 K/uL (1.0-4.8); MEAN CORPUSCULAR HEMOGLOBIN 30.4 pg (26.0-34.0); MEAN CORPUSCULAR HGB CONC 32.6 G/dL (31.0-37.0); MEAN CORPUSCULAR VOLUME 93 fL (80-100); MONOCYTES # (AUTO) 1.4 K/uL (0.1-1.0); MONOCYTES % (AUTO) 12.1 % (2.0-9.0); NEUTROPHILS # (AUTO) 9.8 K/uL (1.8-7.7); NEUTROPHILS % (AUTO) 82.6 % (40.0-70.0); PLATELET COUNT (AUTO) 246 K/uL (150-450); RED BLOOD CELL COUNT(AUTO) 3.97 MIL/uL (4.00-5.20); RED CELL DISTRIBUTION WIDTH 16.1 % (11.5-14.5)
[2017-11-12 06:25] LABS: ALANINE AMINOTRANSFERASE 49 U/L (12-78); ALBUMIN 2.5 g/dL (3.4-5.0); ALKALINE PHOSPHATASE 111 U/L (46-116); ANION GAP 4 mmol/L (8-16); ASPARTATE AMINOTRANSFERASE 27 U/L (15-37); BILIRUBIN,TOTAL 0.4 mg/dL (0.1-1.0); CALCIUM, TOTAL 9.9 mg/dL (8.8-10.5); CARBON DIOXIDE 39 mmol/L (22-29); CHLORIDE 98 mmol/L (98-107); CREATININE 0.76 mg/dL (0.60-1.30); GLOMERULAR FILTR. RATE CALC > 60 mL/min (>60); GLUCOSE,RANDOM 158 mg/dL (70-110); POTASSIUM 4.3 mmol/L (3.5-5.1); SODIUM SERUM 141 mmol/L (136-145); TOTAL PROTEIN, SERUM 6.1 g/dL (6.4-8.2); UREA NITROGEN, BLOOD 32 mg/dL (7-18)
[2017-11-12 07:34] VITALS: BP 144/86
[2017-11-12] MEDS ORDERED: SODIUM CHLORIDE 0.9% 50 ML ONE (08:15)
[2017-11-12] MEDS: VANCOMYCIN HCL 1 GM/D5% WATER 200 ML IV SCH (08:27)
[2017-11-12] MEDS: PRAVASTATIN SODIUM 20 MG TABLET PO SCH (08:28)
[2017-11-12] MEDS: AMIODARONE HCL 200 MG TABLET PO SCH ×2 (08:28→20:55)
[2017-11-12] MEDS: ASPIRIN 81 MG EC TABLET PO SCH (08:28)
[2017-11-12] MEDS: APIXABAN 2.5 MG TABLET PO SCH ×2 (08:28→20:55)
[2017-11-12] MEDS: MULTIVITAMINS WITH MINERALS, THERAPEUTIC TABLET PO SCH (08:28)
[2017-11-12] MEDS: FUROSEMIDE 40 MG TABLET PO SCH (08:28)
[2017-11-12] MEDS: DOCUSATE SODIUM 100 MG CAPSULE PO SCH ×2 (08:28→20:54)
[2017-11-12] MEDS: LISINOPRIL 5 MG TABLET PO SCH (08:28)
[2017-11-12] MEDS: POTASSIUM CHLORIDE 10 MEQ ER TABLET PO SCH (08:28)
[2017-11-12] MEDS: PANTOPRAZOLE SODIUM 40 MG DR TABLET PO SCH (08:29)
[2017-11-12 11:47] VITALS: BP 146/62
[2017-11-12 15:45] VITALS: BP 142/70
[2017-11-12 20:12] VITALS: BP_SYST 103; BP_SYST 144; BP_DIAS 61; BP_DIAS 73
[2017-11-12 23:54] VITALS: BP 128/61
[2017-11-13 05:00] VITALS: BP 133/67
[2017-11-13] MEDS: PIPERACILLIN/TAZO 3.375 GM/D5W 50 ML IV SCH ×3 (05:05→21:06)
[2017-11-13 07:00] LABS: ANION GAP 1 mmol/L (8-16); CALCIUM, TOTAL 10.2 mg/dL (8.8-10.5); CARBON DIOXIDE 40 mmol/L (22-29); CHLORIDE 99 mmol/L (98-107); CREATININE 0.86 mg/dL (0.60-1.30); GLOMERULAR FILTR. RATE CALC > 60 mL/min (>60); GLUCOSE,RANDOM 137 mg/dL (70-110); POTASSIUM 4.1 mmol/L (3.5-5.1); SODIUM SERUM 140 mmol/L (136-145); UREA NITROGEN, BLOOD 32 mg/dL (7-18)
[2017-11-13 07:50] VITALS: BP 128/71
[2017-11-13] MEDS: FUROSEMIDE 40 MG TABLET PO SCH (10:01)
[2017-11-13] MEDS: ASPIRIN 81 MG EC TABLET PO SCH (10:01)
[2017-11-13] MEDS: VANCOMYCIN HCL 1 GM/D5% WATER 200 ML IV SCH (10:01)
[2017-11-13] MEDS: MULTIVITAMINS WITH MINERALS, THERAPEUTIC TABLET PO SCH (10:02)
[2017-11-13] MEDS: POTASSIUM CHLORIDE 10 MEQ ER TABLET PO SCH (10:02)
[2017-11-13] MEDS: DOCUSATE SODIUM 100 MG CAPSULE PO SCH ×2 (10:02→21:06)
[2017-11-13] MEDS: PRAVASTATIN SODIUM 20 MG TABLET PO SCH (10:02)
[2017-11-13] MEDS: APIXABAN 2.5 MG TABLET PO SCH ×2 (10:02→21:06)
[2017-11-13] MEDS: LISINOPRIL 5 MG TABLET PO SCH (10:02)
[2017-11-13] MEDS: AMIODARONE HCL 200 MG TABLET PO SCH ×2 (10:02→22:35)
[2017-11-13] MEDS: PANTOPRAZOLE SODIUM 40 MG DR TABLET PO SCH (10:07)
[2017-11-13 11:35] VITALS: BP 149/74
[2017-11-13 15:46] VITALS: BP 142/55
[2017-11-13 19:31] VITALS: BP 141/63
[2017-11-13 23:22] VITALS: BP 142/63
[2017-11-14 03:48] VITALS: BP 149/70
[2017-11-14] MEDS: PIPERACILLIN/TAZO 3.375 GM/D5W 50 ML IV SCH ×3 (05:03→21:42)
[2017-11-14] MEDS: HYDROCODONE/ACETAMINOPHEN 5-325 MG TABLET PO PRN (05:20)
[2017-11-14 07:04] LABS: ANION GAP -1 mmol/L (8-16); CHLORIDE 97 mmol/L (98-107); CREATININE 0.87 mg/dL (0.60-1.30); GLOMERULAR FILTR. RATE CALC > 60 mL/min (>60); GLUCOSE,RANDOM 146 mg/dL (70-110); POTASSIUM 4.1 mmol/L (3.5-5.1); SODIUM SERUM 139 mmol/L (136-145); VANCOMYCIN,RANDOM 17.2 mcg/mL (25.0-50.0)
[2017-11-14 07:35] LABS: UREA NITROGEN, BLOOD 29 mg/dL (7-18)
[2017-11-14 07:46] VITALS: BP 139/61
[2017-11-14 07:50] LABS: CARBON DIOXIDE 43 mmol/L (22-29)
[2017-11-14] MEDS: AMIODARONE HCL 200 MG TABLET PO SCH ×2 (09:00→21:00)
[2017-11-14] MEDS: MULTIVITAMINS WITH MINERALS, THERAPEUTIC TABLET PO SCH (09:00)
[2017-11-14] MEDS: DOCUSATE SODIUM 100 MG CAPSULE PO SCH ×2 (09:00→21:42)
[2017-11-14] MEDS: PANTOPRAZOLE SODIUM 40 MG DR TABLET PO SCH (09:00)
[2017-11-14] MEDS: ASPIRIN 81 MG EC TABLET PO SCH (09:00)
[2017-11-14] MEDS: PRAVASTATIN SODIUM 20 MG TABLET PO SCH (09:00)
[2017-11-14] MEDS: POTASSIUM CHLORIDE 10 MEQ ER TABLET PO SCH (09:00)
[2017-11-14] MEDS: APIXABAN 2.5 MG TABLET PO SCH ×2 (09:00→21:42)
[2017-11-14] MEDS: LISINOPRIL 5 MG TABLET PO SCH (09:00)
[2017-11-14] MEDS: FUROSEMIDE 40 MG TABLET PO SCH (09:00)
[2017-11-14] MEDS: VANCOMYCIN HCL 1 GM/D5% WATER 200 ML IV SCH (09:45)
[2017-11-14 10:59] LABS: ABG A-A DIFF O2 215.5 mmHg (10-20.0); ABG BASE EXCESS 17.4 mmol/L (-2.0-3.0); ABG CARBOXYHEMOGLOBIN 1.1 % (0.0-1.5); ABG HCO3 37.5 mmol/L (22.0-26.0); ABG METHEMOGLOBIN 0.2 % (0.0-1.5); ABG OXYGEN CONTENT 17.1 mL/dL (15.0-23.0); ABG OXYGEN SATURATION 97.9 % (95.0-98.0); ABG OXYHEMOGLOBIN 96.6 % (94.0-100.0); ABG PH 7.341 (7.35-7.450); ABG TOTAL HEMOGLOBIN 12.5 G/dL (12.0-18.0); PO2, ARTERIAL BG 89.5 mmHg (71.0-79.0); SOURCE, BLOOD GAS ARTERIAL; TEMPERATURE, FAHRENHEIT, BG 95.2 FAHREN (96.0-98.6)
[2017-11-14 11:07] LABS: ABG PCO2 81 mmHg (35-45); O2 DEVICE,BLOOD GAS OXYMIZER (ROOM AIR); SITE, BLOOD GAS LFT RADIAL
[2017-11-14 12:07] VITALS: BP 141/55
[2017-11-14 12:58] LABS: SOURCE, BLOOD GAS ARTERIAL
[2017-11-14 12:59] LABS: ABG BASE EXCESS 17.4 mmol/L (-2.0-3.0); ABG CARBOXYHEMOGLOBIN 0.8 % (0.0-1.5); ABG HCO3 39.1 mmol/L (22.0-26.0); ABG METHEMOGLOBIN 0.1 % (0.0-1.5); ABG OXYGEN SATURATION 99.3 % (95.0-98.0); ABG OXYHEMOGLOBIN 98.4 % (94.0-100.0); ABG PCO2 53 mmHg (35-45); ABG PH 7.504 (7.35-7.450); ABG TOTAL HEMOGLOBIN 12.1 G/dL (12.0-18.0); O2 DEVICE,BLOOD GAS BIPAP (ROOM AIR); PO2, ARTERIAL BG 126.7 mmHg (71.0-79.0); SITE, BLOOD GAS LFT RADIAL; TEMPERATURE, FAHRENHEIT, BG 96.7 FAHREN (96.0-98.6)
[2017-11-14 15:38] VITALS: BP_SYST 117; BP_DIAS 49; BP_DIAS 53
[2017-11-14 16:00] VITALS: BP 117/49
[2017-11-14 20:00] VITALS: BP 125/51
[2017-11-14] MEDS ORDERED: SODIUM CHLORIDE 0.9% 250 ML IV ONE (21:33)
[2017-11-15] VITALS: BP 129/53
[2017-11-15 04:00] VITALS: BP 115/46
[2017-11-15] MEDS: PIPERACILLIN/TAZO 3.375 GM/D5W 50 ML IV SCH ×3 (05:17→20:37)
[2017-11-15 05:59] LABS: HEMATOCRIT 33.6 % (36-46); HEMOGLOBIN 11.1 g/dL (12.0-16.0); LYMPHOCYTES % (AUTO) 12.2 % (22.0-44.0); MEAN CORPUSCULAR HEMOGLOBIN 30.3 pg (26.0-34.0); MEAN CORPUSCULAR HGB CONC 32.9 G/dL (31.0-37.0); MEAN CORPUSCULAR VOLUME 92 fL (80-100); MONOCYTES # (AUTO) 1.1 K/uL (0.1-1.0); MONOCYTES % (AUTO) 13.8 % (2.0-9.0); PLATELET COUNT (AUTO) 207 K/uL (150-450); RED BLOOD CELL COUNT(AUTO) 3.66 MIL/uL (4.00-5.20); RED CELL DISTRIBUTION WIDTH 16.3 % (11.5-14.5)
[2017-11-15 06:23] LABS: ANION GAP 0 mmol/L (8-16); CALCIUM, TOTAL 9.6 mg/dL (8.8-10.5); CHLORIDE 99 mmol/L (98-107); CREATININE 0.84 mg/dL (0.60-1.30); GLOMERULAR FILTR. RATE CALC > 60 mL/min (>60); GLUCOSE,RANDOM 95 mg/dL (70-110); PHOSPHORUS 1.5 mg/dL (2.5-4.9); POTASSIUM 3.7 mmol/L (3.5-5.1); SODIUM SERUM 140 mmol/L (136-145); THYROID STIMULATING HORMONE 3.82 uIU/mL (0.36-3.74); TOTAL PROTEIN, SERUM 5.2 g/dL (6.4-8.2); UREA NITROGEN, BLOOD 25 mg/dL (7-18)
[2017-11-15 07:05] LABS: CARBON DIOXIDE 41 mmol/L (22-29)
[2017-11-15 07:20] LABS: LACTATE DEHYDROGENASE 165 U/L (81-234)
[2017-11-15 08:00] VITALS: BP 122/66
[2017-11-15 08:42] LABS: ABG BASE EXCESS 15.1 mmol/L (-2.0-3.0); ABG HCO3 37.3 mmol/L (22.0-26.0); ABG METHEMOGLOBIN 0.2 % (0.0-1.5); ABG OXYGEN SATURATION 96.1 % (95.0-98.0); ABG OXYHEMOGLOBIN 94.9 % (94.0-100.0); ABG PCO2 47 mmHg (35-45); ABG PH 7.527 (7.35-7.450); ABG TOTAL HEMOGLOBIN 11.2 G/dL (12.0-18.0); PO2, ARTERIAL BG 71.1 mmHg (71.0-79.0); SOURCE, BLOOD GAS ARTERIAL; TEMPERATURE, FAHRENHEIT, BG 98.6 FAHREN (96.0-98.6)
[2017-11-15 08:43] LABS: SITE, BLOOD GAS LFT RADIAL
[2017-11-15 08:44] LABS: O2 DEVICE,BLOOD GAS BIPAP (ROOM AIR)
[2017-11-15 08:45] LABS: CPAP, BG 0 cm H2O; PRESSURE SUPPORT, BG 16 cm H2O; SPONTANEOUS VT, BG 508 ml
[2017-11-15 08:51] LABS: INR 1.2 (0.9-1.1)
[2017-11-15] MEDS: DOCUSATE SODIUM 100 MG CAPSULE PO SCH ×2 (08:58→20:37)
[2017-11-15] MEDS: APIXABAN 2.5 MG TABLET PO SCH ×2 (08:59→20:37)
[2017-11-15] MEDS: PANTOPRAZOLE SODIUM 40 MG DR TABLET PO SCH ×2 (08:59→09:00)
[2017-11-15] MEDS: PRAVASTATIN SODIUM 20 MG TABLET PO SCH ×2 (08:59→09:00)
[2017-11-15] MEDS: ASPIRIN 81 MG EC TABLET PO SCH ×2 (08:59→09:00)
[2017-11-15] MEDS: POTASSIUM CHLORIDE 10 MEQ ER TABLET PO SCH ×2 (08:59→09:00)
[2017-11-15] MEDS: AMIODARONE HCL 200 MG TABLET PO SCH (08:59)
[2017-11-15] MEDS: LISINOPRIL 5 MG TABLET PO SCH (09:00)
[2017-11-15] MEDS: MULTIVITAMINS WITH MINERALS, THERAPEUTIC TABLET PO SCH (09:00)
[2017-11-15] MEDS: FUROSEMIDE 40 MG/4 ML VIAL IVP SCH (09:19)
[2017-11-15] MEDS: VANCOMYCIN HCL 1 GM/D5% WATER 200 ML IV SCH (10:03)
[2017-11-15 12:00] VITALS: BP 133/51
[2017-11-15 13:18] LABS: SPECIMENTYPE,BODY FLUID PLEURAL
[2017-11-15 13:35] LABS: APPEARANCE,SPUN,BODY FLUID CLEAR (CLEAR); APPEARANCE,UNSPUN,BODY FLUID HAZY (CLEAR); COLOR,BODY FLUID YELLOW (LT YELLOW); TOTAL VOLUME,BODY FLUID 1250 mL
[2017-11-15 13:48] LABS: BASOPHILS,BODY FLUID 0 %; EOSINOPHILS,BF (ANAL) 0 %; WBC, BODY FLUID 10 /cu. mm.
[2017-11-15 13:58] LABS: LYMPHOCYTES,BODY FLUID 13 %; MONOCYTES,BODY FLUID 36 %; NEUTROPHILS,BODY FLUID 51 %
[2017-11-15 16:00] VITALS: BP 139/53
[2017-11-15 20:00] VITALS: BP 136/52
[2017-11-15] MEDS ORDERED: SODIUM CHLORIDE 0.9% 250 ML IV ONE (20:33)
[2017-11-16] VITALS (9 sets, daily range): BP systolic 118–133; BP diastolic 49–63
[2017-11-16] MEDS: PIPERACILLIN/TAZO 3.375 GM/D5W 50 ML IV SCH ×3 (05:15→20:51)
[2017-11-16 05:54] LABS: CALCIUM, TOTAL 9.3 mg/dL (8.8-10.5); CREATININE 0.92 mg/dL (0.60-1.30)
[2017-11-16] MEDS: LISINOPRIL 5 MG TABLET PO SCH (08:18)
[2017-11-16] MEDS: PRAVASTATIN SODIUM 20 MG TABLET PO SCH (08:18)
[2017-11-16] MEDS: APIXABAN 2.5 MG TABLET PO SCH ×2 (08:19→22:49)
[2017-11-16] MEDS: ASPIRIN 81 MG EC TABLET PO SCH (08:19)
[2017-11-16] MEDS: DOCUSATE SODIUM 100 MG CAPSULE PO SCH ×2 (08:20→20:51)
[2017-11-16] MEDS: FUROSEMIDE 40 MG/4 ML VIAL IVP SCH (08:20)
[2017-11-16] MEDS: MULTIVITAMINS WITH MINERALS, THERAPEUTIC TABLET PO SCH (08:20)
[2017-11-16] MEDS: VANCOMYCIN HCL 1 GM/D5% WATER 200 ML IV SCH (08:20)
[2017-11-16] MEDS: PANTOPRAZOLE SODIUM 40 MG DR TABLET PO SCH (08:20)
[2017-11-16] MEDS: POTASSIUM CHLORIDE 10 MEQ ER TABLET PO SCH (08:21)
[2017-11-16] MEDS ORDERED: POTASSIUM CHLORIDE 10 MEQ ER TABLET PO ONE (11:45)
[2017-11-16] MEDS ORDERED: SODIUM CHLORIDE 0.9% 500 ML IV ONE (20:54)
[2017-11-17] VITALS (7 sets, daily range): BP systolic 128–155; BP diastolic 54–65
[2017-11-17] MEDS: PIPERACILLIN/TAZO 3.375 GM/D5W 50 ML IV SCH ×3 (05:06→20:02)
[2017-11-17 07:18] LABS: BASOPHILS % (AUTO) 0.8 % (0.0-2.0); HEMATOCRIT 32.9 % (36-46); HEMOGLOBIN 10.9 g/dL (12.0-16.0); LYMPHOCYTES # (AUTO) 1.2 K/uL (1.0-4.8); MEAN CORPUSCULAR HEMOGLOBIN 30.2 pg (26.0-34.0); MEAN CORPUSCULAR HGB CONC 33.1 G/dL (31.0-37.0); MEAN CORPUSCULAR VOLUME 91 fL (80-100); MONOCYTES # (AUTO) 1.1 K/uL (0.1-1.0); NEUTROPHILS # (AUTO) 5.5 K/uL (1.8-7.7); NEUTROPHILS % (AUTO) 69.2 % (40.0-70.0); PLATELET COUNT (AUTO) 199 K/uL (150-450); RED BLOOD CELL COUNT(AUTO) 3.61 MIL/uL (4.00-5.20); RED CELL DISTRIBUTION WIDTH 16.6 % (11.5-14.5)
[2017-11-17 07:24] LABS: ALANINE AMINOTRANSFERASE 32 U/L (12-78); ALBUMIN 2.1 g/dL (3.4-5.0); ALKALINE PHOSPHATASE 70 U/L (46-116); ANION GAP 3 mmol/L (8-16); ASPARTATE AMINOTRANSFERASE 20 U/L (15-37); BILIRUBIN,TOTAL 0.4 mg/dL (0.1-1.0); CALCIUM, TOTAL 9.3 mg/dL (8.8-10.5); CARBON DIOXIDE 38 mmol/L (22-29); CHLORIDE 97 mmol/L (98-107); CREATININE 0.85 mg/dL (0.60-1.30); GLOMERULAR FILTR. RATE CALC > 60 mL/min (>60); GLUCOSE,RANDOM 118 mg/dL (70-110); POTASSIUM 3.1 mmol/L (3.5-5.1); SODIUM SERUM 138 mmol/L (136-145); TOTAL PROTEIN, SERUM 5.3 g/dL (6.4-8.2); UREA NITROGEN, BLOOD 18 mg/dL (7-18)
[2017-11-17] MEDS ORDERED: POTASSIUM CHLORIDE 10% 40 MEQ/30 ML LIQUID UDCUP PO ONE (08:00)
[2017-11-17] MEDS: FUROSEMIDE 20 MG TABLET PO SCH (08:55)
[2017-11-17] MEDS: LISINOPRIL 5 MG TABLET PO SCH (08:55)
[2017-11-17] MEDS: ASPIRIN 81 MG EC TABLET PO SCH (08:55)
[2017-11-17] MEDS: PANTOPRAZOLE SODIUM 40 MG DR TABLET PO SCH (08:55)
[2017-11-17] MEDS: PRAVASTATIN SODIUM 20 MG TABLET PO SCH (08:56)
[2017-11-17] MEDS: POTASSIUM CHLORIDE 20 MEQ ER TABLET PO SCH (08:56)
[2017-11-17] MEDS: MULTIVITAMINS WITH MINERALS, THERAPEUTIC TABLET PO SCH (08:56)
[2017-11-17] MEDS: DOCUSATE SODIUM 100 MG CAPSULE PO SCH ×2 (08:56→21:00)
[2017-11-17] MEDS: APIXABAN 2.5 MG TABLET PO SCH ×2 (08:56→20:02)
[2017-11-17] MEDS: VANCOMYCIN HCL 1 GM/D5% WATER 200 ML IV SCH (09:49)
[2017-11-17] MEDS: LORazepam 2 MG/ML VIAL IVP PRN (22:40)
[2017-11-17] MEDS: IPRATROPIUM BROMIDE 0.5 MG/2.5 ML NEB SOLUTION NEB PRN (22:41)
[2017-11-17 23:15] LABS: ABG A-A DIFF O2 564.7 mmHg (10-20.0); ABG BASE EXCESS 10.5 mmol/L (-2.0-3.0); ABG CARBOXYHEMOGLOBIN 0.8 % (0.0-1.5); ABG HCO3 30.3 mmol/L (22.0-26.0); ABG METHEMOGLOBIN 0.3 % (0.0-1.5); ABG OXYGEN CONTENT 14.6 mL/dL (15.0-23.0); ABG PH 7.216 (7.35-7.450); ABG TOTAL HEMOGLOBIN 13.3 G/dL (12.0-18.0); PO2, ARTERIAL BG 51.8 mmHg (71.0-79.0); SOURCE, BLOOD GAS ARTERIAL; TEMPERATURE, FAHRENHEIT, BG 98.6 FAHREN (96.0-98.6)
[2017-11-17 23:16] LABS: ABG OXYGEN SATURATION 78.9 % (95.0-98.0); ABG PCO2 97 mmHg (35-45); O2 DEVICE,BLOOD GAS BIPAP (ROOM AIR); SITE, BLOOD GAS RT RADIAL
[2017-11-18] VITALS (8 sets, daily range): BP systolic 93–171; BP diastolic 43–90
[2017-11-18] MEDS: PROPOFOL 1000 MG/ISO-OSM 100 ML IV PRN ×3 (00:52→17:07)
[2017-11-18] MEDS ORDERED: SODIUM CHLORIDE 0.9% 250 ML IV ONE ×2 (01:27→20:13)
[2017-11-18 01:51] LABS: ABG BASE EXCESS 6.8 mmol/L (-2.0-3.0); ABG CARBOXYHEMOGLOBIN 0.4 % (0.0-1.5); ABG HCO3 30.3 mmol/L (22.0-26.0); ABG METHEMOGLOBIN 0.2 % (0.0-1.5); ABG OXYGEN SATURATION 98.7 % (95.0-98.0); ABG OXYHEMOGLOBIN 98.1 % (94.0-100.0); ABG PCO2 39 mmHg (35-45); ABG PH 7.499 (7.35-7.450); ABG TOTAL HEMOGLOBIN 11.5 G/dL (12.0-18.0); PO2, ARTERIAL BG 112.6 mmHg (71.0-79.0); SOURCE, BLOOD GAS ARTERIAL; TEMPERATURE, FAHRENHEIT, BG 98.6 FAHREN (96.0-98.6)
[2017-11-18 01:52] LABS: O2 DEVICE,BLOOD GAS VENTILATOR (ROOM AIR); SITE, BLOOD GAS RT BRACHIAL; VT, ABG 500 ml
[2017-11-18 01:53] LABS: PEEP,BG 5 cm H2O
[2017-11-18 04:43] LABS: GLUCOMETER DEV NAME(LOC) 5S 1M; GLUCOSE,POINT OF CARE 230 MG/DL (70-110)
[2017-11-18] MEDS: PIPERACILLIN/TAZO 3.375 GM/D5W 50 ML IV SCH ×3 (05:42→21:06)
[2017-11-18 06:46] LABS: BASOPHILS % (AUTO) 0.7 % (0.0-2.0); EOSINOPHILS % (AUTO) 0.1 % (1.0-6.0); HEMATOCRIT 36.2 % (36-46); HEMOGLOBIN 11.9 g/dL (12.0-16.0); LYMPHOCYTES # (AUTO) 0.8 K/uL (1.0-4.8); LYMPHOCYTES % (AUTO) 5.3 % (22.0-44.0); MEAN CORPUSCULAR HGB CONC 32.9 G/dL (31.0-37.0); MEAN CORPUSCULAR VOLUME 91 fL (80-100); MONOCYTES # (AUTO) 1.2 K/uL (0.1-1.0); MONOCYTES % (AUTO) 8.6 % (2.0-9.0); NEUTROPHILS # (AUTO) 12.2 K/uL (1.8-7.7); PLATELET COUNT (AUTO) 175 K/uL (150-450); RED BLOOD CELL COUNT(AUTO) 3.96 MIL/uL (4.00-5.20); RED CELL DISTRIBUTION WIDTH 16.5 % (11.5-14.5)
[2017-11-18 06:51] LABS: NEUTROPHILS % (AUTO) 85.3 % (40.0-70.0)
[2017-11-18 07:01] LABS: ALBUMIN 2.3 g/dL (3.4-5.0); BILIRUBIN,TOTAL 0.6 mg/dL (0.1-1.0); CALCIUM, TOTAL 9.8 mg/dL (8.8-10.5); POTASSIUM 4.1 mmol/L (3.5-5.1); TOTAL PROTEIN, SERUM 5.7 g/dL (6.4-8.2); VANCOMYCIN,RANDOM 17.9 mcg/mL (25.0-50.0)
[2017-11-18] MEDS: VANCOMYCIN HCL 1 GM/D5% WATER 200 ML IV SCH (08:28)
[2017-11-18] MEDS: DOCUSATE SODIUM 100 MG CAPSULE PO SCH ×2 (08:45→21:06)
[2017-11-18] MEDS: PANTOPRAZOLE SODIUM 40 MG DR TABLET PO SCH (08:46)
[2017-11-18] MEDS: APIXABAN 2.5 MG TABLET PO SCH ×2 (08:46→21:06)
[2017-11-18] MEDS: MULTIVITAMINS WITH MINERALS, THERAPEUTIC TABLET PO SCH (08:46)
[2017-11-18] MEDS: PRAVASTATIN SODIUM 20 MG TABLET PO SCH (08:46)
[2017-11-18] MEDS: POTASSIUM CHLORIDE 20 MEQ ER TABLET PO SCH (08:46)
[2017-11-18] MEDS: ASPIRIN 81 MG EC TABLET PO SCH (08:47)
[2017-11-18] MEDS: LISINOPRIL 5 MG TABLET PO SCH (08:49)
[2017-11-18 11:09] LABS: ABG A-A DIFF O2 313.3 mmHg (10-20.0); ABG CARBOXYHEMOGLOBIN 0.6 % (0.0-1.5); ABG HCO3 35.2 mmol/L (22.0-26.0); ABG METHEMOGLOBIN 0.1 % (0.0-1.5); ABG OXYGEN CONTENT 15.5 mL/dL (15.0-23.0); ABG OXYGEN SATURATION 97.2 % (95.0-98.0); ABG OXYHEMOGLOBIN 96.5 % (94.0-100.0); ABG PCO2 34 mmHg (35-45); ABG TOTAL HEMOGLOBIN 11.4 G/dL (12.0-18.0); SOURCE, BLOOD GAS ARTERIAL; TEMPERATURE, FAHRENHEIT, BG 98.6 FAHREN (96.0-98.6)
[2017-11-18] MEDS: FUROSEMIDE 20 MG TABLET PO SCH (11:10)
[2017-11-18 11:17] LABS: ABG PH 7.609 (7.35-7.450); O2 DEVICE,BLOOD GAS VENTILATOR (ROOM AIR); PEEP,BG 5 cm H2O; SITE, BLOOD GAS LFT RADIAL; VT, ABG 500 ml
[2017-11-18] MEDS ORDERED: SUCCINYLCHOLINE CHLORIDE 20 MG/ML 10 ML VIAL IVP ONE (12:18)
[2017-11-18] MEDS ORDERED: ETOMIDATE 2 MG/ML 10 ML VIAL IVP ONE (12:18)
[2017-11-18] MEDS: AcetaZOLAMIDE SODIUM 500 MG VIAL IVP SCH (15:21)
[2017-11-19] VITALS (8 sets, daily range): BP systolic 110–136; BP diastolic 48–64
[2017-11-19] MEDS: PIPERACILLIN/TAZO 3.375 GM/D5W 50 ML IV SCH ×3 (05:01→21:23)
[2017-11-19 05:20] LABS: BASOPHILS % (AUTO) 1.8 % (0.0-2.0); EOSINOPHILS % (AUTO) 1.5 % (1.0-6.0); HEMATOCRIT 32.3 % (36-46); HEMOGLOBIN 10.8 g/dL (12.0-16.0); LYMPHOCYTES # (AUTO) 1.5 K/uL (1.0-4.8); LYMPHOCYTES % (AUTO) 16.5 % (22.0-44.0); MEAN CORPUSCULAR HEMOGLOBIN 30.4 pg (26.0-34.0); MEAN CORPUSCULAR HGB CONC 33.6 G/dL (31.0-37.0); MEAN CORPUSCULAR VOLUME 91 fL (80-100); MONOCYTES # (AUTO) 1.3 K/uL (0.1-1.0); MONOCYTES % (AUTO) 14.2 % (2.0-9.0); NEUTROPHILS # (AUTO) 6.2 K/uL (1.8-7.7); PLATELET COUNT (AUTO) 177 K/uL (150-450); RED BLOOD CELL COUNT(AUTO) 3.57 MIL/uL (4.00-5.20); RED CELL DISTRIBUTION WIDTH 17.1 % (11.5-14.5)
[2017-11-19 05:54] LABS: BILIRUBIN,TOTAL 0.7 mg/dL (0.1-1.0); CALCIUM, TOTAL 9.1 mg/dL (8.8-10.5); CREATININE 0.9 mg/dL (0.60-1.30); TOTAL PROTEIN, SERUM 5.2 g/dL (6.4-8.2)
[2017-11-19] MEDS: PROPOFOL 1000 MG/ISO-OSM 100 ML IV PRN ×3 (06:31→18:25)
[2017-11-19] MEDS ORDERED: POTASSIUM CHL 10 MEQ/WATER 50 ML IV PRN (08:30)
[2017-11-19] MEDS ORDERED: POTASSIUM CHLORIDE 10% 40 MEQ/30 ML LIQUID UDCUP NG PRN (08:30)
[2017-11-19] MEDS: MULTIVITAMINS WITH MINERALS, THERAPEUTIC TABLET PO SCH (08:37)
[2017-11-19] MEDS: DOCUSATE SODIUM 100 MG CAPSULE PO SCH ×2 (08:37→21:23)
[2017-11-19] MEDS: VANCOMYCIN HCL 1 GM/D5% WATER 200 ML IV SCH (08:37)
[2017-11-19] MEDS: AcetaZOLAMIDE SODIUM 500 MG VIAL IVP SCH (08:37)
[2017-11-19] MEDS: POTASSIUM CHLORIDE 20 MEQ ER TABLET PO SCH (08:38)
[2017-11-19] MEDS: APIXABAN 2.5 MG TABLET PO SCH ×2 (08:38→21:23)
[2017-11-19] MEDS: FUROSEMIDE 20 MG TABLET PO SCH (08:38)
[2017-11-19] MEDS: ASPIRIN 81 MG EC TABLET PO SCH (08:38)
[2017-11-19] MEDS: PANTOPRAZOLE SODIUM 40 MG DR TABLET PO SCH (08:38)
[2017-11-19] MEDS: LISINOPRIL 5 MG TABLET PO SCH (08:38)
[2017-11-19] MEDS: PRAVASTATIN SODIUM 20 MG TABLET PO SCH (08:38)
[2017-11-19 11:47] LABS: ABG A-A DIFF O2 113.3 mmHg (10-20.0); ABG BASE EXCESS 9.1 mmol/L (-2.0-3.0); ABG CARBOXYHEMOGLOBIN 0.5 % (0.0-1.5); ABG HCO3 32.1 mmol/L (22.0-26.0); ABG METHEMOGLOBIN 0.1 % (0.0-1.5); ABG OXYHEMOGLOBIN 98.4 % (94.0-100.0); ABG PCO2 42 mmHg (35-45); ABG PH 7.507 (7.35-7.450); ABG TOTAL HEMOGLOBIN 11.4 G/dL (12.0-18.0); O2 DEVICE,BLOOD GAS VENTILATOR (ROOM AIR); PO2, ARTERIAL BG 124.8 mmHg (71.0-79.0); SITE, BLOOD GAS RT RADIAL; SOURCE, BLOOD GAS ARTERIAL; TEMPERATURE, FAHRENHEIT, BG 97.6 FAHREN (96.0-98.6); VT, ABG 500 ml
[2017-11-19 11:48] LABS: PEEP,BG 5 cm H2O
[2017-11-19] MEDS ORDERED: CONTAINER EMPTY IV SCH ×2 (12:00→12:45)
[2017-11-19] MEDS ORDERED: BUMETANIDE IV SCH ×2 (12:00→12:45)
[2017-11-19] MEDS: POTASSIUM CHL 10 MEQ/WATER 50 ML IV PRN ×6 (12:38→23:40)
[2017-11-19] MEDS: HYDROCODONE/ACETAMINOPHEN 5-325 MG TABLET PO PRN (12:59)
[2017-11-20] VITALS: BP 127/58
[2017-11-20] MEDS: POTASSIUM CHL 10 MEQ/WATER 50 ML IV PRN ×4 (00:51→10:40)
[2017-11-20] MEDS: PROPOFOL 1000 MG/ISO-OSM 100 ML IV PRN ×4 (02:07→23:18)
[2017-11-20 04:00] VITALS: BP 117/58
[2017-11-20] MEDS: PIPERACILLIN/TAZO 3.375 GM/D5W 50 ML IV SCH ×3 (05:04→20:20)
[2017-11-20 05:38] LABS: BASOPHILS % (AUTO) 0.8 % (0.0-2.0); EOSINOPHILS % (AUTO) 0.9 % (1.0-6.0); HEMATOCRIT 36.9 % (36-46); HEMOGLOBIN 12.5 g/dL (12.0-16.0); LYMPHOCYTES # (AUTO) 1.2 K/uL (1.0-4.8); LYMPHOCYTES % (AUTO) 11.5 % (22.0-44.0); MEAN CORPUSCULAR HGB CONC 33.8 G/dL (31.0-37.0); MEAN CORPUSCULAR VOLUME 92 fL (80-100); MONOCYTES # (AUTO) 1.4 K/uL (0.1-1.0); MONOCYTES % (AUTO) 13.6 % (2.0-9.0); NEUTROPHILS # (AUTO) 7.5 K/uL (1.8-7.7); NEUTROPHILS % (AUTO) 73.2 % (40.0-70.0); PLATELET COUNT (AUTO) 157 K/uL (150-450); RED BLOOD CELL COUNT(AUTO) 4.03 MIL/uL (4.00-5.20); RED CELL DISTRIBUTION WIDTH 16.7 % (11.5-14.5)
[2017-11-20 06:03] LABS: ALBUMIN 1.9 g/dL (3.4-5.0); BILIRUBIN,TOTAL 0.5 mg/dL (0.1-1.0); CALCIUM, TOTAL 9.2 mg/dL (8.8-10.5); CREATININE 0.96 mg/dL (0.60-1.30); POTASSIUM 3.5 mmol/L (3.5-5.1); TOTAL PROTEIN, SERUM 5.2 g/dL (6.4-8.2)
[2017-11-20 08:00] VITALS: BP 112/52
[2017-11-20] MEDS ORDERED: SODIUM CHLORIDE 0.9% 250 ML IV ONE ×2 (08:22→08:55)
[2017-11-20] MEDS: DOCUSATE SODIUM 100 MG CAPSULE PO SCH ×2 (08:27→20:18)
[2017-11-20] MEDS: AcetaZOLAMIDE SODIUM 500 MG VIAL IVP SCH (08:27)
[2017-11-20] MEDS: MULTIVITAMINS WITH MINERALS, THERAPEUTIC TABLET PO SCH (08:27)
[2017-11-20] MEDS: ASPIRIN 81 MG EC TABLET PO SCH (08:27)
[2017-11-20] MEDS: VANCOMYCIN HCL 1 GM/D5% WATER 200 ML IV SCH (08:27)
[2017-11-20] MEDS: POTASSIUM CHLORIDE 10% 40 MEQ/30 ML LIQUID UDCUP NG SCH (08:27)
[2017-11-20] MEDS: LISINOPRIL 5 MG TABLET PO SCH (08:28)
[2017-11-20] MEDS: APIXABAN 2.5 MG TABLET PO SCH ×2 (08:28→20:20)
[2017-11-20] MEDS: PRAVASTATIN SODIUM 20 MG TABLET PO SCH (08:28)
[2017-11-20] MEDS: LANSOPRAZOLE 30 MG SOLUBLE TABLET NG SCH (08:34)
[2017-11-20 12:00] VITALS: BP 114/61
[2017-11-20] MEDS ORDERED: FUROSEMIDE 40 MG/4 ML VIAL IVP SCH (14:15)
[2017-11-20] MEDS: FUROSEMIDE 40 MG/4 ML VIAL IVP SCH ×3 (15:51→23:25)
[2017-11-20 16:00] VITALS: BP 91/39
[2017-11-20 20:00] VITALS: BP 109/50
[2017-11-21] VITALS: BP 101/49
[2017-11-21 04:00] VITALS: BP 82/41
[2017-11-21] MEDS: PIPERACILLIN/TAZO 3.375 GM/D5W 50 ML IV SCH ×3 (04:44→20:32)
[2017-11-21 05:02] LABS: BASOPHILS % (AUTO) 0.8 % (0.0-2.0); EOSINOPHILS % (AUTO) 1.2 % (1.0-6.0); HEMATOCRIT 31.2 % (36-46); HEMOGLOBIN 10.4 g/dL (12.0-16.0); LYMPHOCYTES # (AUTO) 1.3 K/uL (1.0-4.8); LYMPHOCYTES % (AUTO) 12.1 % (22.0-44.0); MEAN CORPUSCULAR HEMOGLOBIN 30.4 pg (26.0-34.0); MEAN CORPUSCULAR HGB CONC 33.3 G/dL (31.0-37.0); MEAN CORPUSCULAR VOLUME 91 fL (80-100); MONOCYTES # (AUTO) 1.2 K/uL (0.1-1.0); MONOCYTES % (AUTO) 11.1 % (2.0-9.0); NEUTROPHILS % (AUTO) 74.8 % (40.0-70.0); PLATELET COUNT (AUTO) 166 K/uL (150-450); RED BLOOD CELL COUNT(AUTO) 3.41 MIL/uL (4.00-5.20); RED CELL DISTRIBUTION WIDTH 16.8 % (11.5-14.5)
[2017-11-21 05:12] LABS: CALCIUM, TOTAL 8.9 mg/dL (8.8-10.5); CREATININE 1.16 mg/dL (0.60-1.30); MAGNESIUM 1.9 mg/dL (1.80-2.40); POTASSIUM 3.7 mmol/L (3.5-5.1)
[2017-11-21] MEDS: PROPOFOL 1000 MG/ISO-OSM 100 ML IV PRN ×3 (05:36→23:12)
[2017-11-21 08:00] VITALS: BP 106/46
[2017-11-21 08:30] LABS: ABG A-A DIFF O2 97.9 mmHg (10-20.0); ABG BASE EXCESS 5.7 mmol/L (-2.0-3.0); ABG CARBOXYHEMOGLOBIN 0.6 % (0.0-1.5); ABG HCO3 29.2 mmol/L (22.0-26.0); ABG METHEMOGLOBIN 0.1 % (0.0-1.5); ABG OXYGEN CONTENT 15.2 mL/dL (15.0-23.0); ABG OXYGEN SATURATION 98.2 % (95.0-98.0); ABG OXYHEMOGLOBIN 97.5 % (94.0-100.0); ABG PCO2 43 mmHg (35-45); PO2, ARTERIAL BG 102.2 mmHg (71.0-79.0); SITE, BLOOD GAS RT RADIAL; SOURCE, BLOOD GAS ARTERIAL; TEMPERATURE, FAHRENHEIT, BG 98.6 FAHREN (96.0-98.6)
[2017-11-21 08:31] LABS: O2 DEVICE,BLOOD GAS VENTILATOR (ROOM AIR); PEEP,BG 5 cm H2O; VT, ABG 450 ml
[2017-11-21] MEDS: DOCUSATE SODIUM 100 MG CAPSULE PO SCH ×3 (08:43→21:00)
[2017-11-21] MEDS: LISINOPRIL 5 MG TABLET PO SCH (08:43)
[2017-11-21] MEDS: VANCOMYCIN HCL 1 GM/D5% WATER 200 ML IV SCH (08:57)
[2017-11-21] MEDS: POTASSIUM CHLORIDE 10% 40 MEQ/30 ML LIQUID UDCUP NG SCH (08:58)
[2017-11-21] MEDS: APIXABAN 2.5 MG TABLET PO SCH ×2 (08:58→20:32)
[2017-11-21] MEDS: LANSOPRAZOLE 30 MG SOLUBLE TABLET NG SCH (08:58)
[2017-11-21] MEDS: PRAVASTATIN SODIUM 20 MG TABLET PO SCH (08:58)
[2017-11-21] MEDS: FUROSEMIDE 40 MG/4 ML VIAL IVP SCH ×3 (08:58→23:11)
[2017-11-21] MEDS: MULTIVITAMINS WITH MINERALS, THERAPEUTIC TABLET PO SCH (08:58)
[2017-11-21] MEDS: AcetaZOLAMIDE SODIUM 500 MG VIAL IVP SCH (08:58)
[2017-11-21] MEDS: ASPIRIN 81 MG EC TABLET PO SCH (09:12)
[2017-11-21] MEDS: POTASSIUM CHL 10 MEQ/WATER 50 ML IV PRN ×2 (09:19→10:56)
[2017-11-21 12:00] VITALS: BP 102/45
[2017-11-21] MEDS ORDERED: SODIUM CHLORIDE 0.9% 250 ML IV ONE (15:57)
[2017-11-21 16:00] VITALS: BP 97/46
[2017-11-21 20:00] VITALS: BP 109/51
[2017-11-22] VITALS: BP 107/66
[2017-11-22 04:00] VITALS: BP 97/57
[2017-11-22] MEDS: PIPERACILLIN/TAZO 3.375 GM/D5W 50 ML IV SCH ×3 (04:33→20:13)
[2017-11-22 05:21] LABS: ANION GAP 8 mmol/L (8-16); CARBON DIOXIDE 22 mmol/L (22-29); CHLORIDE 115 mmol/L (98-107); CREATININE 0.59 mg/dL (0.60-1.30); GLOMERULAR FILTR. RATE CALC > 60 mL/min (>60); GLUCOSE,RANDOM 100 mg/dL (70-110); SODIUM SERUM 145 mmol/L (136-145); UREA NITROGEN, BLOOD 16 mg/dL (7-18); VANCOMYCIN,RANDOM 15.7 mcg/mL (25.0-50.0)
[2017-11-22 05:22] LABS: POTASSIUM 2.1 mmol/L (3.5-5.1)
[2017-11-22 05:30] LABS: CALCIUM, TOTAL 5.4 mg/dL (8.8-10.5)
[2017-11-22] MEDS: POTASSIUM CHL 10 MEQ/WATER 50 ML IV PRN ×4 (05:30→08:46)
[2017-11-22] MEDS: PROPOFOL 1000 MG/ISO-OSM 100 ML IV PRN ×3 (05:36→21:48)
[2017-11-22] MEDS ORDERED: CALCIUM GLUCONATE 100 MG/ML 10 ML IVP ONE ×2 (06:15→08:15)
[2017-11-22 08:00] VITALS: BP 91/58
[2017-11-22] MEDS: DOCUSATE SODIUM 100 MG CAPSULE PO SCH ×2 (08:34→20:14)
[2017-11-22] MEDS: MULTIVITAMINS WITH MINERALS, THERAPEUTIC TABLET PO SCH (08:45)
[2017-11-22] MEDS ORDERED: POTASSIUM CHLORIDE 10% 40 MEQ/30 ML LIQUID UDCUP PO ONE (08:45)
[2017-11-22] MEDS: APIXABAN 2.5 MG TABLET PO SCH ×2 (08:45→20:14)
[2017-11-22] MEDS: LISINOPRIL 5 MG TABLET PO SCH (08:45)
[2017-11-22] MEDS: LANSOPRAZOLE 30 MG SOLUBLE TABLET NG SCH (08:45)
[2017-11-22] MEDS: ASPIRIN 81 MG EC TABLET PO SCH (08:45)
[2017-11-22] MEDS: VANCOMYCIN HCL 1.25 GM in DEXTROSE 5%-WATER 250 ML IV SCH (08:46)
[2017-11-22] MEDS: PRAVASTATIN SODIUM 20 MG TABLET PO SCH (08:46)
[2017-11-22] MEDS: POTASSIUM CHLORIDE 10% 40 MEQ/30 ML LIQUID UDCUP NG SCH (09:00)
[2017-11-22 12:00] VITALS: BP 91/58
[2017-11-22 14:00] LABS: MAGNESIUM 2.1 mg/dL (1.80-2.40); POTASSIUM 4.7 mmol/L (3.5-5.1)
[2017-11-22] MEDS: FUROSEMIDE 40 MG/4 ML VIAL IVP SCH ×2 (14:48→20:14)
[2017-11-22 16:00] VITALS: BP 100/55
[2017-11-22 20:00] VITALS: BP 100/56
[2017-11-23] VITALS: BP 116/56
[2017-11-23] MEDS: PROPOFOL 1000 MG/ISO-OSM 100 ML IV PRN ×2 (03:38→12:54)
[2017-11-23 04:00] VITALS: BP 106/54
[2017-11-23] MEDS: PIPERACILLIN/TAZO 3.375 GM/D5W 50 ML IV SCH ×3 (05:18→21:17)
[2017-11-23 05:22] LABS: ALBUMIN 1.8 g/dL (3.4-5.0); BILIRUBIN,TOTAL 0.3 mg/dL (0.1-1.0); CALCIUM, TOTAL 9.3 mg/dL (8.8-10.5); CREATININE 1.06 mg/dL (0.60-1.30); MAGNESIUM 2.1 mg/dL (1.80-2.40); POTASSIUM 3.8 mmol/L (3.5-5.1); TOTAL PROTEIN, SERUM 5.7 g/dL (6.4-8.2)
[2017-11-23 05:28] LABS: BASOPHILS % (AUTO) 0.8 % (0.0-2.0); EOSINOPHILS % (AUTO) 1.4 % (1.0-6.0); HEMATOCRIT 30.6 % (36-46); HEMOGLOBIN 10.5 g/dL (12.0-16.0); LYMPHOCYTES # (AUTO) 1.3 K/uL (1.0-4.8); LYMPHOCYTES % (AUTO) 14.1 % (22.0-44.0); MEAN CORPUSCULAR HEMOGLOBIN 31.4 pg (26.0-34.0); MEAN CORPUSCULAR HGB CONC 34.4 G/dL (31.0-37.0); MEAN CORPUSCULAR VOLUME 91 fL (80-100); MONOCYTES % (AUTO) 10.6 % (2.0-9.0); NEUTROPHILS # (AUTO) 6.6 K/uL (1.8-7.7); NEUTROPHILS % (AUTO) 73.1 % (40.0-70.0); PLATELET COUNT (AUTO) 161 K/uL (150-450); RED BLOOD CELL COUNT(AUTO) 3.35 MIL/uL (4.00-5.20); RED CELL DISTRIBUTION WIDTH 17.3 % (11.5-14.5)
[2017-11-23 08:00] VITALS: BP 108/46
[2017-11-23] MEDS ORDERED: VANCOMYCIN HCL 1 GM/D5% WATER 200 ML IV SCH (08:00)
[2017-11-23] MEDS: VANCOMYCIN HCL 1.25 GM in DEXTROSE 5%-WATER 250 ML IV SCH ×2 (08:10→08:44)
[2017-11-23] MEDS ORDERED: POTASSIUM CHLORIDE 10% 40 MEQ/30 ML LIQUID UDCUP NG ONE (08:30)
[2017-11-23] MEDS: FUROSEMIDE 40 MG/4 ML VIAL IVP SCH ×2 (08:45→21:18)
[2017-11-23] MEDS: PRAVASTATIN SODIUM 20 MG TABLET PO SCH (08:45)
[2017-11-23] MEDS: DOCUSATE SODIUM 100 MG CAPSULE PO SCH ×2 (08:45→21:00)
[2017-11-23] MEDS: APIXABAN 2.5 MG TABLET PO SCH ×2 (08:45→21:18)
[2017-11-23] MEDS: LANSOPRAZOLE 30 MG SOLUBLE TABLET NG SCH (08:45)
[2017-11-23] MEDS: POTASSIUM CHLORIDE 10% 40 MEQ/30 ML LIQUID UDCUP NG SCH (08:46)
[2017-11-23] MEDS: MULTIVITAMINS WITH MINERALS, THERAPEUTIC TABLET PO SCH (08:46)
[2017-11-23] MEDS: ASPIRIN 81 MG EC TABLET PO SCH (08:46)
[2017-11-23] MEDS: LISINOPRIL 5 MG TABLET PO SCH (08:48)
[2017-11-23 12:00] VITALS: BP 101/49
[2017-11-23 16:00] VITALS: BP 102/50
[2017-11-23] MEDS ORDERED: SODIUM CHLORIDE 0.9% 250 ML IV ONE (16:41)
[2017-11-23 20:00] VITALS: BP 111/58
[2017-11-24] VITALS: BP 104/51
[2017-11-24 04:00] VITALS: BP 111/60
[2017-11-24] MEDS: PIPERACILLIN/TAZO 3.375 GM/D5W 50 ML IV SCH ×3 (04:45→20:36)
[2017-11-24] MEDS: PROPOFOL 1000 MG/ISO-OSM 100 ML IV PRN (04:47)
[2017-11-24 05:55] LABS: BASOPHILS % (AUTO) 0.8 % (0.0-2.0); EOSINOPHILS % (AUTO) 1.2 % (1.0-6.0); HEMATOCRIT 28.9 % (36-46); HEMOGLOBIN 9.9 g/dL (12.0-16.0); LYMPHOCYTES # (AUTO) 1.1 K/uL (1.0-4.8); LYMPHOCYTES % (AUTO) 12.7 % (22.0-44.0); MEAN CORPUSCULAR HEMOGLOBIN 31.4 pg (26.0-34.0); MEAN CORPUSCULAR HGB CONC 34.3 G/dL (31.0-37.0); MEAN CORPUSCULAR VOLUME 92 fL (80-100); MONOCYTES # (AUTO) 1.1 K/uL (0.1-1.0); MONOCYTES % (AUTO) 12.6 % (2.0-9.0); NEUTROPHILS # (AUTO) 6.2 K/uL (1.8-7.7); NEUTROPHILS % (AUTO) 72.7 % (40.0-70.0); PLATELET COUNT (AUTO) 151 K/uL (150-450); RED BLOOD CELL COUNT(AUTO) 3.16 MIL/uL (4.00-5.20); RED CELL DISTRIBUTION WIDTH 17.6 % (11.5-14.5)
[2017-11-24] MEDS: VANCOMYCIN HCL 1 GM/D5% WATER 200 ML IV SCH (07:45)
[2017-11-24 08:00] VITALS: BP 106/51
[2017-11-24 08:08] LABS: CALCIUM, TOTAL 9.6 mg/dL (8.8-10.5); CREATININE 1.08 mg/dL (0.60-1.30); POTASSIUM 3.5 mmol/L (3.5-5.1)
[2017-11-24 08:13] LABS: ALBUMIN 1.8 g/dL (3.4-5.0); BILIRUBIN,TOTAL 0.3 mg/dL (0.1-1.0); MAGNESIUM 2.1 mg/dL (1.80-2.40); TOTAL PROTEIN, SERUM 5.7 g/dL (6.4-8.2)
[2017-11-24] MEDS: FUROSEMIDE 40 MG/4 ML VIAL IVP SCH (08:30)
[2017-11-24] MEDS ORDERED: POTASSIUM CHLORIDE 10% 40 MEQ/30 ML LIQUID UDCUP NG ONE (08:30)
[2017-11-24] MEDS: MULTIVITAMINS WITH MINERALS, THERAPEUTIC TABLET PO SCH (08:30)
[2017-11-24] MEDS: ASPIRIN 81 MG EC TABLET PO SCH (08:30)
[2017-11-24] MEDS: APIXABAN 2.5 MG TABLET PO SCH ×2 (08:31→20:36)
[2017-11-24] MEDS: LANSOPRAZOLE 30 MG SOLUBLE TABLET NG SCH (08:31)
[2017-11-24] MEDS: PRAVASTATIN SODIUM 20 MG TABLET PO SCH (08:31)
[2017-11-24] MEDS: DOCUSATE SODIUM 100 MG CAPSULE PO SCH ×2 (08:31→20:36)
[2017-11-24] MEDS: LISINOPRIL 5 MG TABLET PO SCH (08:32)
[2017-11-24] MEDS: POTASSIUM CHLORIDE 10% 40 MEQ/30 ML LIQUID UDCUP NG SCH (08:32)
[2017-11-24 12:00] VITALS: BP 142/65
[2017-11-24 16:00] VITALS: BP 97/46
[2017-11-24] MEDS ORDERED: SODIUM CHLORIDE 0.9% 250 ML IV ONE (17:36)
[2017-11-24 20:00] VITALS: BP 102/49
[2017-11-25] VITALS: BP 111/52
[2017-11-25] MEDS: PROPOFOL 1000 MG/ISO-OSM 100 ML IV PRN ×3 (00:26→18:51)
[2017-11-25 04:00] VITALS: BP 119/65
[2017-11-25] MEDS: PIPERACILLIN/TAZO 3.375 GM/D5W 50 ML IV SCH ×3 (05:01→20:44)
[2017-11-25 06:04] LABS: BASOPHILS % (AUTO) 0.5 % (0.0-2.0); EOSINOPHILS % (AUTO) 0.8 % (1.0-6.0); HEMATOCRIT 30.2 % (36-46); HEMOGLOBIN 10.3 g/dL (12.0-16.0); LYMPHOCYTES % (AUTO) 10.9 % (22.0-44.0); MEAN CORPUSCULAR HEMOGLOBIN 30.9 pg (26.0-34.0); MEAN CORPUSCULAR VOLUME 91 fL (80-100); MONOCYTES # (AUTO) 1.1 K/uL (0.1-1.0); MONOCYTES % (AUTO) 12.4 % (2.0-9.0); NEUTROPHILS % (AUTO) 75.4 % (40.0-70.0); PLATELET COUNT (AUTO) 156 K/uL (150-450); RED BLOOD CELL COUNT(AUTO) 3.32 MIL/uL (4.00-5.20); RED CELL DISTRIBUTION WIDTH 17.4 % (11.5-14.5)
[2017-11-25 06:09] LABS: CALCIUM, TOTAL 9.6 mg/dL (8.8-10.5); CREATININE 0.98 mg/dL (0.60-1.30); POTASSIUM 3.5 mmol/L (3.5-5.1)
[2017-11-25] MEDS: VANCOMYCIN HCL 1 GM/D5% WATER 200 ML IV SCH (07:38)
[2017-11-25 08:00] VITALS: BP 119/70
[2017-11-25] MEDS: PRAVASTATIN SODIUM 20 MG TABLET PO SCH (08:21)
[2017-11-25] MEDS: DOCUSATE SODIUM 100 MG CAPSULE PO SCH ×2 (08:21→20:44)
[2017-11-25] MEDS: POTASSIUM CHLORIDE 10% 40 MEQ/30 ML LIQUID UDCUP NG SCH ×2 (08:21→22:10)
[2017-11-25] MEDS: ASPIRIN 81 MG EC TABLET PO SCH (08:21)
[2017-11-25] MEDS: APIXABAN 2.5 MG TABLET PO SCH ×2 (08:21→20:44)
[2017-11-25] MEDS: LANSOPRAZOLE 30 MG SOLUBLE TABLET NG SCH (08:22)
[2017-11-25] MEDS: MULTIVITAMINS WITH MINERALS, THERAPEUTIC TABLET PO SCH (08:22)
[2017-11-25 08:34] LABS: ABG A-A DIFF O2 107.4 mmHg (10-20.0); ABG BASE EXCESS 2.2 mmol/L (-2.0-3.0); ABG CARBOXYHEMOGLOBIN 0.4 % (0.0-1.5); ABG HCO3 26.3 mmol/L (22.0-26.0); ABG METHEMOGLOBIN 0.2 % (0.0-1.5); ABG OXYGEN CONTENT 14.6 mL/dL (15.0-23.0); ABG OXYGEN SATURATION 97.6 % (95.0-98.0); ABG PCO2 41 mmHg (35-45); ABG PH 7.426 (7.35-7.450); ABG TOTAL HEMOGLOBIN 10.6 G/dL (12.0-18.0); PO2, ARTERIAL BG 93.6 mmHg (71.0-79.0); SOURCE, BLOOD GAS ARTERIAL; TEMPERATURE, FAHRENHEIT, BG 99.5 FAHREN (96.0-98.6)
[2017-11-25 08:35] LABS: O2 DEVICE,BLOOD GAS VENTILATOR (ROOM AIR); PEEP,BG 5 cm H2O; SITE, BLOOD GAS RT RADIAL; VT, ABG 450 ml
[2017-11-25] MEDS ORDERED: FUROSEMIDE 40 MG/4 ML VIAL IVP SCH (09:00)
[2017-11-25] MEDS: LISINOPRIL 5 MG TABLET PO SCH (09:00)
[2017-11-25] MEDS: LORazepam 2 MG/ML VIAL IVP PRN (10:19)
[2017-11-25 12:00] VITALS: BP 90/61
[2017-11-25 16:00] VITALS: BP 107/65
[2017-11-25] MEDS ORDERED: SODIUM CHLORIDE 0.9% 250 ML IV ONE (16:47)
[2017-11-25 20:00] VITALS: BP 11/57
[2017-11-25] MEDS: FUROSEMIDE 40 MG/4 ML VIAL IVP SCH (22:10)
[2017-11-26] VITALS: BP 123/62
[2017-11-26] MEDS: PROPOFOL 1000 MG/ISO-OSM 100 ML IV PRN ×4 (01:56→21:25)
[2017-11-26 04:00] VITALS: BP 106/61
[2017-11-26 05:26] LABS: BASOPHILS % (AUTO) 0.8 % (0.0-2.0); EOSINOPHILS % (AUTO) 1.2 % (1.0-6.0); HEMATOCRIT 28.2 % (36-46); HEMOGLOBIN 9.8 g/dL (12.0-16.0); LYMPHOCYTES % (AUTO) 13.3 % (22.0-44.0); MEAN CORPUSCULAR HEMOGLOBIN 31.7 pg (26.0-34.0); MEAN CORPUSCULAR HGB CONC 34.6 G/dL (31.0-37.0); MEAN CORPUSCULAR VOLUME 91 fL (80-100); MONOCYTES % (AUTO) 14.1 % (2.0-9.0); NEUTROPHILS # (AUTO) 5.1 K/uL (1.8-7.7); NEUTROPHILS % (AUTO) 70.6 % (40.0-70.0); PLATELET COUNT (AUTO) 145 K/uL (150-450); RED BLOOD CELL COUNT(AUTO) 3.08 MIL/uL (4.00-5.20); RED CELL DISTRIBUTION WIDTH 18.2 % (11.5-14.5)
[2017-11-26] MEDS: PIPERACILLIN/TAZO 3.375 GM/D5W 50 ML IV SCH ×3 (05:39→21:25)
[2017-11-26 05:42] LABS: ALANINE AMINOTRANSFERASE 23 U/L (12-78); ALBUMIN 1.9 g/dL (3.4-5.0); ALKALINE PHOSPHATASE 109 U/L (46-116); ANION GAP 6 mmol/L (8-16); ASPARTATE AMINOTRANSFERASE 22 U/L (15-37); BILIRUBIN,TOTAL 0.6 mg/dL (0.1-1.0); CALCIUM, TOTAL 9.4 mg/dL (8.8-10.5); CARBON DIOXIDE 31 mmol/L (22-29); CHLORIDE 101 mmol/L (98-107); CREATININE 0.89 mg/dL (0.60-1.30); GLOMERULAR FILTR. RATE CALC > 60 mL/min (>60); GLUCOSE,RANDOM 146 mg/dL (70-110); POTASSIUM 3.9 mmol/L (3.5-5.1); SODIUM SERUM 138 mmol/L (136-145); TOTAL PROTEIN, SERUM 6.1 g/dL (6.4-8.2); UREA NITROGEN, BLOOD 28 mg/dL (7-18); VANCOMYCIN,RANDOM 24.7 mcg/mL (25.0-50.0)
[2017-11-26 08:00] VITALS: BP 110/62
[2017-11-26] MEDS: MULTIVITAMINS WITH MINERALS, THERAPEUTIC TABLET PO SCH (08:13)
[2017-11-26] MEDS: ASPIRIN 81 MG EC TABLET PO SCH (08:13)
[2017-11-26] MEDS: LANSOPRAZOLE 30 MG SOLUBLE TABLET NG SCH (08:14)
[2017-11-26] MEDS: POTASSIUM CHLORIDE 10% 40 MEQ/30 ML LIQUID UDCUP NG SCH ×2 (08:14→21:26)
[2017-11-26] MEDS: PRAVASTATIN SODIUM 20 MG TABLET PO SCH (08:14)
[2017-11-26] MEDS: APIXABAN 2.5 MG TABLET PO SCH ×2 (08:14→21:26)
[2017-11-26] MEDS: FUROSEMIDE 40 MG/4 ML VIAL IVP SCH ×2 (08:15→21:25)
[2017-11-26] MEDS: DOCUSATE SODIUM 100 MG CAPSULE PO SCH ×2 (08:15→21:26)
[2017-11-26] MEDS: LISINOPRIL 5 MG TABLET PO SCH (08:15)
[2017-11-26] MEDS: VANCOMYCIN HCL 1 GM/D5% WATER 200 ML IV SCH (08:17)
[2017-11-26] MEDS ORDERED: SODIUM CHLORIDE 0.9% 250 ML IV ONE (08:38)
[2017-11-26 12:00] VITALS: BP 101/53
[2017-11-26 16:00] VITALS: BP 98/58
[2017-11-26 20:00] VITALS: BP 112/54
[2017-11-27] VITALS: BP 100/48
[2017-11-27] MEDS: PROPOFOL 1000 MG/ISO-OSM 100 ML IV PRN ×4 (02:40→21:41)
[2017-11-27 04:00] VITALS: BP 107/50
[2017-11-27 04:39] LABS: CALCIUM, TOTAL 9.9 mg/dL (8.8-10.5); CREATININE 0.9 mg/dL (0.60-1.30); POTASSIUM 4.2 mmol/L (3.5-5.1)
[2017-11-27] MEDS: PIPERACILLIN/TAZO 3.375 GM/D5W 50 ML IV SCH ×3 (05:45→21:39)
[2017-11-27 08:00] VITALS: BP 131/62
[2017-11-27] MEDS: LANSOPRAZOLE 30 MG SOLUBLE TABLET NG SCH (08:48)
[2017-11-27] MEDS: VANCOMYCIN HCL 750 MG in DEXTROSE 5%-WATER 150 ML IV SCH (08:48)
[2017-11-27] MEDS: MULTIVITAMINS WITH MINERALS, THERAPEUTIC TABLET PO SCH (08:48)
[2017-11-27] MEDS: LISINOPRIL 5 MG TABLET PO SCH (08:49)
[2017-11-27] MEDS: APIXABAN 2.5 MG TABLET PO SCH ×2 (08:49→21:40)
[2017-11-27] MEDS: POTASSIUM CHLORIDE 10% 40 MEQ/30 ML LIQUID UDCUP NG SCH ×2 (08:49→21:40)
[2017-11-27] MEDS: PRAVASTATIN SODIUM 20 MG TABLET PO SCH (08:49)
[2017-11-27] MEDS: DOCUSATE SODIUM 100 MG CAPSULE PO SCH ×2 (08:49→21:00)
[2017-11-27] MEDS: ASPIRIN 81 MG EC TABLET PO SCH (08:49)
[2017-11-27] MEDS: FUROSEMIDE 40 MG/4 ML VIAL IVP SCH ×2 (08:50→21:40)
[2017-11-27 12:00] VITALS: BP 130/61
[2017-11-27 16:00] VITALS: BP 114/59
[2017-11-27 20:00] VITALS: BP 124/57
[2017-11-27] MEDS ORDERED: SODIUM CHLORIDE 0.9% 250 ML IV ONE ×2 (21:35→21:43)
[2017-11-28] VITALS: BP 149/83
[2017-11-28 04:00] VITALS: BP 113/60
[2017-11-28] MEDS: PIPERACILLIN/TAZO 3.375 GM/D5W 50 ML IV SCH ×3 (04:08→21:47)
[2017-11-28] MEDS: PROPOFOL 1000 MG/ISO-OSM 100 ML IV PRN ×4 (04:09→21:29)
[2017-11-28 05:54] LABS: ANION GAP 5 mmol/L (8-16); CALCIUM, TOTAL 9.8 mg/dL (8.8-10.5); CARBON DIOXIDE 32 mmol/L (22-29); CHLORIDE 103 mmol/L (98-107); CREATININE 0.84 mg/dL (0.60-1.30); GLOMERULAR FILTR. RATE CALC > 60 mL/min (>60); GLUCOSE,RANDOM 132 mg/dL (70-110); SODIUM SERUM 140 mmol/L (136-145); UREA NITROGEN, BLOOD 32 mg/dL (7-18)
[2017-11-28 08:00] VITALS: BP 131/68
[2017-11-28] MEDS: POTASSIUM CHLORIDE 10% 40 MEQ/30 ML LIQUID UDCUP NG SCH ×2 (08:01→21:28)
[2017-11-28] MEDS: FUROSEMIDE 40 MG/4 ML VIAL IVP SCH ×2 (08:01→21:28)
[2017-11-28] MEDS: VANCOMYCIN HCL 750 MG in DEXTROSE 5%-WATER 150 ML IV SCH (08:01)
[2017-11-28] MEDS: ASPIRIN 81 MG EC TABLET PO SCH (08:02)
[2017-11-28] MEDS: DOCUSATE SODIUM 100 MG CAPSULE PO SCH ×2 (08:02→21:00)
[2017-11-28] MEDS: MULTIVITAMINS WITH MINERALS, THERAPEUTIC TABLET PO SCH (08:02)
[2017-11-28] MEDS: PRAVASTATIN SODIUM 20 MG TABLET PO SCH (08:02)
[2017-11-28] MEDS: LANSOPRAZOLE 30 MG SOLUBLE TABLET NG SCH (08:02)
[2017-11-28] MEDS: APIXABAN 2.5 MG TABLET PO SCH ×2 (08:02→21:28)
[2017-11-28] MEDS: LISINOPRIL 5 MG TABLET PO SCH (08:03)
[2017-11-28 12:00] VITALS: BP 125/57
[2017-11-28 16:00] VITALS: BP 107/47
[2017-11-28 20:00] VITALS: BP 110/53
[2017-11-29] VITALS: BP 111/48
[2017-11-29] MEDS ORDERED: SODIUM CHLORIDE 0.9% 250 ML IV ONE (03:00)
[2017-11-29] MEDS: PROPOFOL 1000 MG/ISO-OSM 100 ML IV PRN ×3 (03:03→14:22)
[2017-11-29 04:00] VITALS: BP 116/62
[2017-11-29] MEDS: PIPERACILLIN/TAZO 3.375 GM/D5W 50 ML IV SCH ×3 (05:10→20:27)
[2017-11-29 05:49] LABS: ANION GAP 5 mmol/L (8-16); CALCIUM, TOTAL 9.6 mg/dL (8.8-10.5); CARBON DIOXIDE 33 mmol/L (22-29); CHLORIDE 103 mmol/L (98-107); CREATININE 0.78 mg/dL (0.60-1.30); GLOMERULAR FILTR. RATE CALC > 60 mL/min (>60); GLUCOSE,RANDOM 141 mg/dL (70-110); POTASSIUM 3.8 mmol/L (3.5-5.1); SODIUM SERUM 141 mmol/L (136-145); UREA NITROGEN, BLOOD 31 mg/dL (7-18)
[2017-11-29 07:44] LABS: BASOPHILS % (AUTO) 0.7 % (0.0-2.0); EOSINOPHILS % (AUTO) 2.3 % (1.0-6.0); HEMATOCRIT 28.7 % (36-46); HEMOGLOBIN 9.6 g/dL (12.0-16.0); LYMPHOCYTES # (AUTO) 0.8 K/uL (1.0-4.8); LYMPHOCYTES % (AUTO) 11.6 % (22.0-44.0); MEAN CORPUSCULAR HEMOGLOBIN 30.5 pg (26.0-34.0); MEAN CORPUSCULAR HGB CONC 33.5 G/dL (31.0-37.0); MEAN CORPUSCULAR VOLUME 91 fL (80-100); MONOCYTES # (AUTO) 0.7 K/uL (0.1-1.0); MONOCYTES % (AUTO) 10.6 % (2.0-9.0); NEUTROPHILS # (AUTO) 5.2 K/uL (1.8-7.7); NEUTROPHILS % (AUTO) 74.8 % (40.0-70.0); PLATELET COUNT (AUTO) 172 K/uL (150-450); RED BLOOD CELL COUNT(AUTO) 3.15 MIL/uL (4.00-5.20); RED CELL DISTRIBUTION WIDTH 18.1 % (11.5-14.5)
[2017-11-29] MEDS: LANSOPRAZOLE 30 MG SOLUBLE TABLET NG SCH (07:51)
[2017-11-29] MEDS: POTASSIUM CHLORIDE 10% 40 MEQ/30 ML LIQUID UDCUP NG SCH ×2 (07:51→20:27)
[2017-11-29] MEDS: DOCUSATE SODIUM 100 MG CAPSULE PO SCH ×2 (07:51→20:27)
[2017-11-29] MEDS: FUROSEMIDE 40 MG/4 ML VIAL IVP SCH ×2 (07:51→20:27)
[2017-11-29] MEDS: PRAVASTATIN SODIUM 20 MG TABLET PO SCH (07:52)
[2017-11-29] MEDS: ASPIRIN 81 MG EC TABLET PO SCH (07:52)
[2017-11-29] MEDS: MULTIVITAMINS WITH MINERALS, THERAPEUTIC TABLET PO SCH (07:52)
[2017-11-29] MEDS: APIXABAN 2.5 MG TABLET PO SCH ×2 (07:52→20:27)
[2017-11-29] MEDS: LISINOPRIL 5 MG TABLET PO SCH (07:52)
[2017-11-29 08:00] VITALS: BP 113/72
[2017-11-29 12:00] VITALS: BP 91/51
[2017-11-29 16:00] VITALS: BP 95/49
[2017-11-29 18:47] LABS: C.DIFF GDH ANTIGEN, Stool Positive (Negative); C.DIFF TOXINS A&B, Stool Negative (Negative)
[2017-11-29 20:00] VITALS: BP 104/63
[2017-11-30] VITALS: BP 105/59
[2017-11-30] MEDS: PROPOFOL 1000 MG/ISO-OSM 100 ML IV PRN ×3 (03:24→18:59)
[2017-11-30 04:00] VITALS: BP 121/78
[2017-11-30 05:14] LABS: BASOPHILS % (AUTO) 0.6 % (0.0-2.0); EOSINOPHILS % (AUTO) 1.1 % (1.0-6.0); HEMATOCRIT 28.4 % (36-46); HEMOGLOBIN 9.4 g/dL (12.0-16.0); LYMPHOCYTES # (AUTO) 0.8 K/uL (1.0-4.8); MEAN CORPUSCULAR HEMOGLOBIN 30.7 pg (26.0-34.0); MEAN CORPUSCULAR HGB CONC 33.2 G/dL (31.0-37.0); MEAN CORPUSCULAR VOLUME 92 fL (80-100); MONOCYTES # (AUTO) 0.7 K/uL (0.1-1.0); MONOCYTES % (AUTO) 10.1 % (2.0-9.0); NEUTROPHILS # (AUTO) 5.6 K/uL (1.8-7.7); NEUTROPHILS % (AUTO) 77.2 % (40.0-70.0); PLATELET COUNT (AUTO) 198 K/uL (150-450); RED BLOOD CELL COUNT(AUTO) 3.07 MIL/uL (4.00-5.20); RED CELL DISTRIBUTION WIDTH 18.2 % (11.5-14.5)
[2017-11-30] MEDS: PIPERACILLIN/TAZO 3.375 GM/D5W 50 ML IV SCH ×3 (05:19→20:55)
[2017-11-30 05:30] LABS: ALANINE AMINOTRANSFERASE 20 U/L (12-78); ALBUMIN 1.6 g/dL (3.4-5.0); ALKALINE PHOSPHATASE 147 U/L (46-116); ANION GAP 4 mmol/L (8-16); ASPARTATE AMINOTRANSFERASE 34 U/L (15-37); BILIRUBIN,TOTAL 0.4 mg/dL (0.1-1.0); CALCIUM, TOTAL 9.3 mg/dL (8.8-10.5); CARBON DIOXIDE 33 mmol/L (22-29); CHLORIDE 104 mmol/L (98-107); CREATININE 0.75 mg/dL (0.60-1.30); GLOMERULAR FILTR. RATE CALC > 60 mL/min (>60); GLUCOSE,RANDOM 145 mg/dL (70-110); POTASSIUM 4.5 mmol/L (3.5-5.1); SODIUM SERUM 141 mmol/L (136-145)
[2017-11-30 05:41] LABS: UREA NITROGEN, BLOOD 31 mg/dL (7-18)
[2017-11-30] MEDS: APIXABAN 2.5 MG TABLET PO SCH ×2 (07:45→20:55)
[2017-11-30] MEDS: PRAVASTATIN SODIUM 20 MG TABLET PO SCH (07:45)
[2017-11-30] MEDS: FUROSEMIDE 40 MG/4 ML VIAL IVP SCH ×2 (07:45→20:55)
[2017-11-30] MEDS: LANSOPRAZOLE 30 MG SOLUBLE TABLET NG SCH (07:46)
[2017-11-30] MEDS: ASPIRIN 81 MG EC TABLET PO SCH (07:46)
[2017-11-30] MEDS: POTASSIUM CHLORIDE 10% 40 MEQ/30 ML LIQUID UDCUP NG SCH ×2 (07:46→20:55)
[2017-11-30] MEDS: MULTIVITAMINS WITH MINERALS, THERAPEUTIC TABLET PO SCH (07:46)
[2017-11-30] MEDS: DOCUSATE SODIUM 100 MG CAPSULE PO SCH ×2 (07:47→20:13)
[2017-11-30] MEDS: LISINOPRIL 5 MG TABLET PO SCH (07:47)
[2017-11-30 08:00] VITALS: BP 110/78
[2017-11-30] MEDS: MetroNIDAZOLE 500 MG TABLET NG SCH ×3 (09:20→23:49)
[2017-11-30 12:00] VITALS: BP 101/57
[2017-11-30 16:00] VITALS: BP 107/55
[2017-11-30] MEDS ORDERED: SODIUM CHLORIDE 0.9% 250 ML IV ONE (16:01)
[2017-11-30 20:00] VITALS: BP 125/71
[2017-12-01] VITALS: BP 104/58
[2017-12-01] MEDS ORDERED: SODIUM CHLORIDE 0.9% 250 ML IV ONE (02:12)
[2017-12-01] MEDS: PROPOFOL 1000 MG/ISO-OSM 100 ML IV PRN ×3 (02:19→15:20)
[2017-12-01 04:00] VITALS: BP 104/60
[2017-12-01] MEDS: PIPERACILLIN/TAZO 3.375 GM/D5W 50 ML IV SCH ×3 (05:01→21:01)
[2017-12-01 05:21] LABS: BASOPHILS % (AUTO) 0.7 % (0.0-2.0); HEMATOCRIT 28.1 % (36-46); HEMOGLOBIN 9.4 g/dL (12.0-16.0); LYMPHOCYTES # (AUTO) 1.6 K/uL (1.0-4.8); MEAN CORPUSCULAR HEMOGLOBIN 30.5 pg (26.0-34.0); MEAN CORPUSCULAR HGB CONC 33.5 G/dL (31.0-37.0); MEAN CORPUSCULAR VOLUME 91 fL (80-100); MONOCYTES # (AUTO) 1.2 K/uL (0.1-1.0); MONOCYTES % (AUTO) 11.6 % (2.0-9.0); NEUTROPHILS # (AUTO) 7.1 K/uL (1.8-7.7); NEUTROPHILS % (AUTO) 69.7 % (40.0-70.0); PLATELET COUNT (AUTO) 193 K/uL (150-450); RED BLOOD CELL COUNT(AUTO) 3.08 MIL/uL (4.00-5.20); RED CELL DISTRIBUTION WIDTH 18.7 % (11.5-14.5)
[2017-12-01 05:45] LABS: ALBUMIN 1.7 g/dL (3.4-5.0); BILIRUBIN,TOTAL 0.3 mg/dL (0.1-1.0); CALCIUM, TOTAL 9.7 mg/dL (8.8-10.5); CREATININE 0.96 mg/dL (0.60-1.30); MAGNESIUM 2.3 mg/dL (1.80-2.40); POTASSIUM 4.6 mmol/L (3.5-5.1); TOTAL PROTEIN, SERUM 5.9 g/dL (6.4-8.2)
[2017-12-01 08:00] VITALS: BP 128/65
[2017-12-01] MEDS: MULTIVITAMINS WITH MINERALS, THERAPEUTIC TABLET PO SCH (08:37)
[2017-12-01] MEDS: LISINOPRIL 5 MG TABLET PO SCH (08:37)
[2017-12-01] MEDS: MetroNIDAZOLE 500 MG TABLET NG SCH ×2 (08:37→15:18)
[2017-12-01] MEDS: PRAVASTATIN SODIUM 20 MG TABLET PO SCH (08:37)
[2017-12-01] MEDS: APIXABAN 2.5 MG TABLET PO SCH ×2 (08:37→21:01)
[2017-12-01] MEDS: DOCUSATE SODIUM 100 MG CAPSULE PO SCH ×2 (08:37→21:01)
[2017-12-01] MEDS: ASPIRIN 81 MG EC TABLET PO SCH (08:37)
[2017-12-01] MEDS: LANSOPRAZOLE 30 MG SOLUBLE TABLET NG SCH (08:37)
[2017-12-01] MEDS: POTASSIUM CHLORIDE 10% 40 MEQ/30 ML LIQUID UDCUP NG SCH ×2 (08:37→21:01)
[2017-12-01] MEDS: FUROSEMIDE 40 MG/4 ML VIAL IVP SCH ×2 (08:38→21:02)
[2017-12-01 12:00] VITALS: BP 123/61
[2017-12-01 16:00] VITALS: BP 117/90
[2017-12-01 20:00] VITALS: BP 120/90
[2017-12-02] VITALS: BP 99/51
[2017-12-02] MEDS: MetroNIDAZOLE 500 MG TABLET NG SCH ×2 (00:02→08:22)
[2017-12-02] MEDS: PROPOFOL 1000 MG/ISO-OSM 100 ML IV PRN ×2 (00:53→06:11)
[2017-12-02] MEDS ORDERED: SODIUM CHLORIDE 0.9% 250 ML IV ONE (02:47)
[2017-12-02 04:00] VITALS: BP 123/57
[2017-12-02] MEDS: PIPERACILLIN/TAZO 3.375 GM/D5W 50 ML IV SCH (04:47)
[2017-12-02 05:23] LABS: BASOPHILS % (AUTO) 0.6 % (0.0-2.0); EOSINOPHILS % (AUTO) 2.5 % (1.0-6.0); HEMATOCRIT 29.5 % (36-46); HEMOGLOBIN 9.9 g/dL (12.0-16.0); LYMPHOCYTES % (AUTO) 14.7 % (22.0-44.0); MEAN CORPUSCULAR HEMOGLOBIN 30.6 pg (26.0-34.0); MEAN CORPUSCULAR HGB CONC 33.4 G/dL (31.0-37.0); MEAN CORPUSCULAR VOLUME 92 fL (80-100); MONOCYTES # (AUTO) 0.6 K/uL (0.1-1.0); MONOCYTES % (AUTO) 9.8 % (2.0-9.0); NEUTROPHILS # (AUTO) 4.8 K/uL (1.8-7.7); NEUTROPHILS % (AUTO) 72.4 % (40.0-70.0); PLATELET COUNT (AUTO) 209 K/uL (150-450); RED BLOOD CELL COUNT(AUTO) 3.23 MIL/uL (4.00-5.20); RED CELL DISTRIBUTION WIDTH 18.6 % (11.5-14.5)
[2017-12-02 05:30] LABS: ALANINE AMINOTRANSFERASE 27 U/L (12-78); ALBUMIN 1.7 g/dL (3.4-5.0); ALKALINE PHOSPHATASE 151 U/L (46-116); ANION GAP 7 mmol/L (8-16); ASPARTATE AMINOTRANSFERASE 31 U/L (15-37); BILIRUBIN,TOTAL 0.4 mg/dL (0.1-1.0); CALCIUM, TOTAL 9.8 mg/dL (8.8-10.5); CARBON DIOXIDE 32 mmol/L (22-29); CHLORIDE 104 mmol/L (98-107); CREATININE 0.88 mg/dL (0.60-1.30); GLOMERULAR FILTR. RATE CALC > 60 mL/min (>60); GLUCOSE,RANDOM 143 mg/dL (70-110); SODIUM SERUM 143 mmol/L (136-145); TOTAL PROTEIN, SERUM 5.9 g/dL (6.4-8.2); UREA NITROGEN, BLOOD 41 mg/dL (7-18)
[2017-12-02 08:00] VITALS: BP 117/64
[2017-12-02] MEDS: POTASSIUM CHLORIDE 10% 40 MEQ/30 ML LIQUID UDCUP NG SCH (08:21)
[2017-12-02] MEDS: LISINOPRIL 5 MG TABLET PO SCH (08:22)
[2017-12-02] MEDS: PRAVASTATIN SODIUM 20 MG TABLET PO SCH (08:22)
[2017-12-02] MEDS: DOCUSATE SODIUM 100 MG CAPSULE PO SCH (08:22)
[2017-12-02] MEDS: MULTIVITAMINS WITH MINERALS, THERAPEUTIC TABLET PO SCH (08:22)
[2017-12-02] MEDS: ASPIRIN 81 MG EC TABLET PO SCH (08:22)
[2017-12-02] MEDS: LANSOPRAZOLE 30 MG SOLUBLE TABLET NG SCH (08:22)
[2017-12-02] MEDS: APIXABAN 2.5 MG TABLET PO SCH (08:23)
[2017-12-02] MEDS: FUROSEMIDE 40 MG/4 ML VIAL IVP SCH (08:23)
[2017-12-02 12:00] VITALS: BP 96/52
[2017-12-02] MEDS ORDERED: MORPHINE SULFATE 100 MG/NS/PF 100 ML IV PRN (12:18)
[2017-12-02] MEDS ORDERED: DiphenhydrAMINE HCL 50 MG/ML VIAL IVP PRN (12:30)
[2017-12-02] MEDS ORDERED: ONDANSETRON HCL 4 MG/2 ML VIAL IVP PRN (12:30)
[2017-12-02] MEDS ORDERED: LORazepam 2 MG/ML VIAL IVP PRN (15:00)
[2017-12-02 16:00] VITALS: BP 86/53
[2017-12-02 19:32] VITALS: BP 93/42
== END 2017-12-03 00:40 | disposition expired | DRG 130 ==
LOC: EMS 16:34 → UNDOADMIN 18:34 → 6N 18:34 → 5S 18:34 → ICU 11-03 13:25 → 5N 11-04 18:30 → 4E 11-13 17:30 → ICU 11-14 12:59 → 5S 11-16 13:05 → ICU 11-17 23:45 → 6N 12-02 18:50
PROVIDERS: ADMIT Hospitalist; ATTEND Hospitalist
PROC: 5A09457 Assistance with Respiratory Ventilation, 24-96 Consecutive Hours, Continuous Positive Airway Pressure (ICD-10-PCS; principal; 2017-11-14)
PROC: 0W993ZX Drainage of Right Pleural Cavity, Percutaneous Approach, Diagnostic (ICD-10-PCS; 2017-11-15)
PROC: 5A1955Z Respiratory Ventilation, Greater than 96 Consecutive Hours (ICD-10-PCS; 2017-11-18)
PROC: 0BH17EZ Insertion of Endotracheal Airway into Trachea, Via Natural or Artificial Opening (ICD-10-PCS; 2017-11-18)
DX: J96.01 Acute respiratory failure with hypoxia (principal); I21.4 Non-ST elevation (NSTEMI) myocardial infarction; J18.9 Pneumonia, unspecified organism; I47.2 Ventricular tachycardia; G93.40 Encephalopathy, unspecified; J90 Pleural effusion, not elsewhere classified; N17.9 Acute kidney failure, unspecified; I27.20 Pulmonary hypertension, unspecified; F03.90 Unspecified dementia, unspecified severity, without behavioral disturbance, psychotic disturbance, mood disturbance, and anxiety; I50.9 Heart failure, unspecified; J96.02 Acute respiratory failure with hypercapnia; F33.2 Major depressive disorder, recurrent severe without psychotic features; E66.01 Morbid (severe) obesity due to excess calories; R00.1 Bradycardia, unspecified; L97.929 Non-pressure chronic ulcer of unspecified part of left lower leg with unspecified severity; L97.919 Non-pressure chronic ulcer of unspecified part of right lower leg with unspecified severity; W18.39XA Other fall on same level, initial encounter; R62.7 Adult failure to thrive; L03.115 Cellulitis of right lower limb; I48.0 Paroxysmal atrial fibrillation; E87.6 Hypokalemia; G47.33 Obstructive sleep apnea (adult) (pediatric); I34.0 Nonrheumatic mitral (valve) insufficiency; L03.116 Cellulitis of left lower limb; Z53.20 Procedure and treatment not carried out because of patient's decision for unspecified reasons; Z66 Do not resuscitate; I25.2 Old myocardial infarction; Z68.32 Body mass index [BMI] 32.0-32.9, adult; Z91.19 Patient's noncompliance with other medical treatment and regimen; Y93.89 Activity, other specified; Y92.098 Other place in other non-institutional residence as the place of occurrence of the external cause; Y99.8 Other external cause status; Z79.899 Other long term (current) drug therapy; Z78.1 Physical restraint status
CPT/HCPCS: 32555; 51701; 70450; 73720; 76942; 82271; 82465; 82805; 82945; 82962; 83036; 83605; 83615; 83735; 83874; 83986; 84100; 84132; 84155; 84157; 84439; 84443; 85651; 86038; 86140; 86430; 87015; 87040; 87070; 87081; 87086; 87205; 87324; 87449; 89051; 90471; 93005; 93306; 93308; 93970; 94002; 94003; 94640; 94660; 95816; 96365; 97162; 97166; 97530; 99285; A9585; G0480; J0330; J0610; J0712; J1120; J1265; J1644; J1650; J1940; J2060; J2270; J2405; J2543; J2704; J3370; J3480; J3490; J7040; J7050; J7060